=== PATIENT | male | born 1950 | race Caucasian/White ===

== ENCOUNTER 2016-04-03 01:54 | Emergency (ER) | payer OTHER ==
[2016-04-03 02:05] VITALS: TEMP 97.3
[2016-04-03] MEDS ORDERED: NS 1,000 ML IV ONE (02:33)
[2016-04-03] MEDS ORDERED: ONDANSETRON 4 MG/2 ML VIAL IVP ONE (02:33)
--- NOTE | 2016-04-03 02:49 | EDPHY ---
H & P Stated Complaint: abd pain, n/v/d, (fleet enemas tonight with subsequent BMs) Time Seen by Provider: 04/03/16 02:08 HPI/ROS: HPI The patient presents with lower abdominal sharp pain which has been constant over the last several hours. He had a cervical spinal fusion performed 4 days ago and has been recuperating at home. He is taking Percocet for pain. He thought his pain was related to constipation so we gave himself a Fleet's enema with good bowel movement afterwards. However, his pain continued so he came into the emergency room. This pain is accompanied by vomiting he has had several episodes of nonbloody nonbilious emesis.. REVIEW OF SYSTEMS Constitutional: No fever, no chills. Eyes: No discharge. ENT: No sore throat. Cardiovascular: No chest pain, no palpitations. Respiratory: No cough, no shortness of breath. Gastrointestinal: See HPI Genitourinary: No hematuria. Musculoskeletal: No back pain. Skin: No rashes. Neurological: No headache. PMHx: Cervical fusion Soc Hx: Lives at home PHYSICAL General Appearance: Alert, no distress Eyes: Pupils equal and round no pallor or injection ENT, Mouth: Mucous membranes moist Respiratory: There are no retractions, lungs are clear to auscultation Cardiovascular: Regular rate and rhythm Gastrointestinal: Abdomen is soft and non-tender, no masses, bowel sounds normal Neurological: A&O, moves all extremities Skin: Warm and dry, no rashes Musculoskeletal: Neck is supple non tender Extremities: symmetrical, full range of motion Psychiatric: Patient is oriented X 3, there is no agitation Source: Patient Exam Limitations: No limitations - Personal History Current Tetanus/Diphtheria Vaccine: Yes Tetanus Vaccine Date: <10 YRS - Medical/Surgical History Hx Asthma: No Hx Chronic Respiratory Disease: No Hx Diabetes: No Hx Cardiac Disease: No Hx Renal Disease: No Hx Cirrhosis: No Hx Alcoholism: No Hx HIV/AIDS: No Hx Splenectomy or Spleen Trauma: No Other PMH: PSHx:cervical fusion 03/30/2016 (second fusion), bilat hip replacement. PMHx: high cholesterol, arthritis - Social History Smoking Status: Never smoked Constitutional: Initial Vital Signs Temperature (C) 36.3 C 04/03/16 01:58 Heart Rate 98 04/03/16 01:58 Respiratory Rate 14 04/03/16 01:58 Blood Pressure 138/86 H 04/03/16 01:58 O2 Sat (%) 91 L 04/03/16 01:58 O2 Delivery Mode Room Air Allergies/Adverse Reactions: tramadol Allergy (Unknown, Verified 11/29/12 23:58) Vomiting Home Medications: Medication Instructions Recorded Simvastatin [Zocor 20 mg (RX)] 20 mg PO DAILY18 03/04/12 oxyCODONE/APAP 5/325 [Percocet 1 - 2 tab PO BID PRN 11/29/12 5/325 (RX)] Flomax 04/03/16 Keflex 04/03/16 Valium 04/03/16 Zofran 04/03/16 Medical Decision Making ED Course/Re-evaluation: The patient received IV fluids and had basic labs checked. His labs were unremarkable. After L of fluid he was feeling entirely better. His abdominal exam was benign with no further tenderness. It is possible his pain is related to constipation and have discussed this with him. We plan for him to continue plenty of fluids, Colace, MiraLax. He is to return to the emergency room if his abdominal pain returns. Differential Diagnosis: This is a relatively healthy 66-year-old man who is status post spinal fusion on Percocet who presents from home with abdominal pain which has persisted after administering an enema at home. His pain began prior to the enema and is associated with vomiting. Differential diagnosis includes constipation, less likely bowel perforation from enema use, diverticulitis, colitis, dehydration. - Data Points Laboratory Results: Laboratory Results 04/03/16 02:40 04/03/16 02:40 04/03/16 02:40 WBC 11.02 H 10^3/uL (3.80-9.50) RBC 4.59 10^6/uL (4.40-6.38) Hgb 15.3 g/dL (13.7-17.5) Hct 42.6 % (40.0-51.0) MCV 92.8 fL (81.5-99.8) MCH 33.3 pg (27.9-34.1) MCHC 35.9 g/dL (32.4-36.7) RDW 11.6 % (11.5-15.2) Plt Count 284 10^3/uL (150-400) MPV 9.6 fL (8.7-11.7) Neut % (Auto) 84.0 H % (39.3-74.2) Lymph % (Auto) 4.1 L % (15.0-45.0) Edgar % (Auto) 11.3 % (4.5-13.0) Eos % (Auto) 0.0 L % (0.6-7.6) Baso % (Auto) 0.2 L % (0.3-1.7) Nucleat RBC Rel Count 0.0 % (0.0-0.2) Absolute Neuts (auto) 9.26 H 10^3/uL (1.70-6.50) Absolute Lymphs (auto) 0.45 L 10^3/uL (1.00-3.00) Absolute Monos (auto) 1.25 H 10^3/uL (0.30-0.80) Absolute Eos (auto) 0.00 L 10^3/uL (0.03-0.40) Absolute Basos (auto) 0.02 10^3/uL (0.02-0.10) Absolute Nucleated RBC 0.00 10^3/uL (0-0.01) Immature Gran % 0.4 % (0.0-1.1) Immature Gran # 0.04 10^3/uL (0.00-0.10) Sodium 137 mEq/L (134-144) Potassium 3.8 mEq/L (3.5-5.2) Chloride 98 mEq/L (97-110) Carbon Dioxide 28 mEq/l (22-31) Anion Gap 11 mEq/L (8-16) BUN 18 mg/dL (7-23) Creatinine 0.7 mg/dL (0.7-1.3) Estimated GFR > 60 Glucose 143 H mg/dL (70-100) Calcium 9.9 mg/dL (8.5-10.4) Total Bilirubin 1.2 mg/dL (0.1-1.4) Conjugated Bilirubin 0.3 mg/dL (0.0-0.5) Unconjugated Bilirubin 0.9 mg/dL (0.0-1.1) AST 33 IU/L (17-59) ALT 48 IU/L (21-72) Alkaline Phosphatase 60 IU/L (38-126) Total Protein 6.2 L g/dL (6.3-8.2) Albumin 4.1 g/dL (3.5-5.0) Lipase 75.0 IU/L (23-300) Medications Given: Discontinued Medications Sodium Chloride (Ns) 1,000 mls @ 0 mls/hr IV ONCE ONE PRN Reason: Wide Open Stop: 04/03/16 02:34 Last Admin: 04/03/16 02:48 Dose: 1,000 mls Ondansetron HCl (Zofran) 4 mg IVP EDNOW ONE Stop: 04/03/16 02:34 Last Admin: 04/03/16 02:48 Dose: 4 mg Departure - Departure Disposition: Home, Routine, Self-Care Clinical Impression: Abdominal pain, Vomiting Condition: Good Instructions: Constipation (ED) Additional Instructions: Please make sure to drink plenty of fluids. You should also take them MiraLax and Colace to help with your bowel movements. Please take the lowest dose of oxycodone that you need for your pain. You should return to the emergency room if your pain is worse in any way. Referrals: Salvador Fisher MD [Primary Care Provider] - As per Instructions
[2016-04-03 02:58] LABS: ALANINE AMINOTRANSFERASE 48 IU/L (21-72); ALBUMIN 4.1 g/dL (3.5-5.0); ALKALINE PHOSPHATASE 60 IU/L (38-126); ANION GAP 11 mEq/L (8-16); ASPARTATE AMINOTRANSFERASE 33 IU/L (17-59); BILIRUBIN,TOTAL 1.2 mg/dL (0.1-1.4); BILIRUBIN-CONJUGATED 0.3 mg/dL (0.0-0.5); BILIRUBIN-UNCONJUGATED 0.9 mg/dL (0.0-1.1); CALCIUM 9.9 mg/dL (8.5-10.4); CARBON DIOXIDE 28 mEq/l (22-31); CHLORIDE 98 mEq/L (97-110); CREATININE 0.7 mg/dL (0.7-1.3); GLOMERULAR FILTRATION RATE > 60; GLUCOSE 143 mg/dL (70-100); POTASSIUM 3.8 mEq/L (3.5-5.2); SODIUM 137 mEq/L (134-144); TOTAL PROTEIN 6.2 g/dL (6.3-8.2)
[2016-04-03 03:01] LABS: % IMMATURE GRANULYOCYTES 0.4 % (0.0-1.1); ABSOLUTE IMMATURE GRANULOCYTES 0.04 10^3/uL (0.00-0.10); ADD DIFF? NO; ADD MORPH? NO; ADD SCAN? NO; ATYPICAL LYMPHOCYTE FLAG 0 (0-99); FRAGMENT RBC FLAG 0 (0-99); HEMATOCRIT 42.6 % (40.0-51.0); HEMOGLOBIN 15.3 g/dL (13.7-17.5); LEFT SHIFT FLG 0 (0-99); LIPEMIA HEMOLYSIS FLAG 90 (0-99); MEAN CELL HEMOGLOBIN 33.3 pg (27.9-34.1); MEAN CELL HEMOGLOBIN CONCENTR. 35.9 g/dL (32.4-36.7); MEAN CELL VOLUME 92.8 fL (81.5-99.8); MEAN PLATELET VOLUME 9.6 fL (8.7-11.7); PLATELET CLUMPS FLAG 10 (0-99); PLATELET COUNT 284 10^3/uL (150-400); RED BLOOD CELL COUNT 4.59 10^6/uL (4.40-6.38); RED CELL DISTRIBUTION WIDTH 11.6 % (11.5-15.2)
[2016-04-03 03:45] VITALS: BP 142/92; PULSE 87; RESP 16; O2SAT 93
== END 2016-04-03 03:47 | disposition home or self-care (01) ==
DX: R10.30 Lower abdominal pain, unspecified (principal); R11.10 Vomiting, unspecified
CPT/HCPCS: 96374; J2405

== ENCOUNTER 2016-04-27 05:55 | Inpatient (IN) | payer OTHER ==
[2016-04-27] MEDS ORDERED: ceFAZolin 2 GM/DEXTROSE 100 ML IV ONE (06:00)
[2016-04-27] MEDS ORDERED: fentaNYL 100 MCG/2 ML INJ IT ONE (06:00)
[2016-04-27] MEDS ORDERED: DEXAMETHASONE 10 MG/ML VIAL IVP ONE (06:00)
[2016-04-27] MEDS ORDERED: morphINE PF 1 MG/2 ML AMP IT ONE (06:00)
[2016-04-27] MEDS ORDERED: LIDOCAINE 1% 5 ML SDV ONE (06:45)
[2016-04-27] MEDS ORDERED: BACITRACIN 50,000 UNITS/10 ML SYR IRR ONE (06:45)
[2016-04-27] MEDS ORDERED: BUPIVACAINE/EPI 0.25% 30 ML SDV ONE (06:45)
[2016-04-27] MEDS ORDERED: BUPIVACAINE 0.25% 30 ML SDV ONE (06:45)
[2016-04-27] MEDS ORDERED: THROMBIN (RECOMBINANT) 5,000 UNIT VIAL TP ONE (06:45)
[2016-04-27] MEDS ORDERED: PROPOFOL/EMULSION 500 MG/50 ML BOTTLE IV ONE ×3 (07:02→11:25)
[2016-04-27] MEDS ORDERED: fentaNYL 100 MCG/2 ML INJ ONE ×2 (07:02→10:54)
[2016-04-27] MEDS ORDERED: CITRATE DEXTROSE SOLN 500 ML BAG ONE ×2 (07:03→10:29)
[2016-04-27] MEDS ORDERED: ROCURONIUM 50 MG/5 ML VIAL ONE (07:08)
[2016-04-27] MEDS ORDERED: MIDAZOLAM 2 MG/2 ML VIAL ONE (07:09)
[2016-04-27] MEDS ORDERED: LIDOCAINE 2% 100 MG/5 ML SYR IVP ONE (07:10)
[2016-04-27] MEDS ORDERED: PHENYLEPHRINE HCL 100 MCG/ML SYR ONE (07:16)
[2016-04-27] MEDS ORDERED: DEXAMETHASONE 4 MG/ML VIAL ONE (08:26)
[2016-04-27] MEDS ORDERED: ONDANSETRON 4 MG/2 ML VIAL ONE (08:27)
[2016-04-27] MEDS ORDERED: morphINE PF 5 MG/10 ML INJ ONE (10:54)
[2016-04-27] MEDS ORDERED: ceFAZolin 1 GM VIAL ONE ×2 (11:09)
[2016-04-27] MEDS ORDERED: ALBUMIN 5% 250 ML BOTTLE IV ONE (12:09)
[2016-04-27] MEDS ORDERED: SUGAMMADEX SODIUM 200 MG/2 ML VIAL IVP ONE (13:02)
[2016-04-27] MEDS ORDERED: DIAZEPAM 10 MG/2 ML SYR IVP PRN (13:04)
[2016-04-27] MEDS ORDERED: LACTULOSE 20 GM/30 ML UDCUP PO PRN (13:04)
[2016-04-27] MEDS ORDERED: MAGNESIUM HYDROXIDE 30 ML UDCUP PO PRN (13:04)
[2016-04-27] MEDS ORDERED: diphenhydrAMINE 25 MG CAP PO PRN (13:04)
[2016-04-27] MEDS ORDERED: NALOXONE HCL 0.4 MG/ML INJ IVP PRN (13:04)
--- NOTE | 2016-04-27 13:11 | SOAPPROG ---
SOAP Progress Note Assessment/Plan: Assessment: 66 yo M sp L2-5 TLIF Plan: stable hob flat for 3 days because of durotomy TU x 1 but do NOT put TU to suction please call with neuro changes 04/27/16 13:10 Subjective: + back pain, no leg pain Objective: awake, alert PERRL, EOMI, no facial droop 5/5 + light touch ICD10 Worksheet Patient Problems: Problems Problem Status Diagnosed Fusion of lumbar spine Acute - ICD10 Problem Qualifiers (1) Fusion of lumbar spine
--- NOTE | 2016-04-27 13:12 | POSTOPPROG ---
Post Op Note Date of Operation: 04/27/16 Surgeon: Jason Robles Claims Analyst: Edi Anesthesiologist: Thelma Anesthesia: GET(General Endotracheal) Pre-op Diagnosis: lumbar DJD Post-op Diagnosis: same Indication: low back pain Procedure: L2-5 TLIF Findings: DJD/stenosis Inf/Abcess present in the surg proc area at time of surgery?: No EBL: 50-100 Complications: durotomy at L5/S1 Drains: Ck Lanza
--- NOTE | 2016-04-27 15:53 | GOP ---
[f rep st] OPERATIVE REPORT DATE OF OPERATION: 04/27/2016 SURGEON: Jason Robles MD MANAGER ORDER: Felix Daley PA-C. ANESTHESIA: General endotracheal. PREOPERATIVE DIAGNOSIS: Severe multilevel lumbar degenerative joint disease with spondylosis and spi nal stenosis/lateral recess and foraminal impingement. Intractable low back pain. Failed conservati ve care. POSTOPERATIVE DIAGNOSIS: Severe multilevel lumbar degenerative joint disease with spondylosis and sp inal stenosis/lateral recess and foraminal impingement. Intractable low back pain. Failed conservat yeison care. PROCEDURE PERFORMED: Left-sided L2-3, L3-4, and L4-5 far lateral transfacet transpedicular decompres ira with L2 through S1 posterior segmental (pedicle screw) fixation and posterolateral fusion with l ocal autograft and bone morphogenic protein. L2-3, L3-4, and L4-5 posterior/transforaminal lumbar in terbody fusion with 2 structural PEEK interbody spacers, local autograft and bone morphogenic protein at each level. Identification and repair of CSF leak not requiring laminectomy on the right at L5-S 1. Use of intraoperative microscopy, fluoroscopy and computer volumetric stereotactic navigation wit h intraoperative neurophysiologic testing. Injection of intrathecal narcotic analgesics and subcutan eous and intramuscular local anesthesia for postop pain control. FINDINGS: ESTIMATED BLOOD LOSS: 300 cc. INDICATIONS: The patient is a 66-year-old man with severe multilevel lumbar spondylosis and spinal s tenosis with lateral recess and foraminal impingement. He has severe disk space collapse and loss of normal sagittal alignment (lordosis) with intractable low back pain. He has failed extensive conser vative care. He does have some arthritis at the L1-2 and L5-S1 levels, but I felt that the L2 throug h L5 levels were much worse, and I did not want to perform any bigger surgery than he needed, and foc used on L2 through 5 instead of L1-2 and L5-S1. DESCRIPTION OF PROCEDURE: After informed consent was obtained, the patient was taken to the operatin g room and placed in the prone position on the Ck table. The lumbosacral area was prepped and d raped in a sterile fashion. After needle localization of the correct levels, the subcutaneous and in tramuscular tissues were infiltrated with local anesthesia. A midline linear incision was then creat ed from approximately L2 through L5. This was carried down to the fascial layer, which was incised u sing monopolar electrocautery, and carried in a subperiosteal plane along the spinous processes and l aydee bilaterally. Intraoperative fluoroscopy was again utilized to verify the correct levels. Foll owing this, the dissection was carried out over the lamina and facet joints, and the transverse proce sses exposed. I did notice some clear fluid down at the bottom of the incision and, on further explo ration under high-power microscopy, it appeared to be coming from the L5-S1 level, which was where th e ligamentum flavum was carefully elevated and a small hole was identified that appeared to be relate d to the needle localization. This was repaired with a single 4-0 Nurolon suture without requiring a ny laminectomy. Following this, the microscope was re-focused on the L2-3, L3-4, and L4-5 levels, wh ere left-sided far lateral transfacet transpedicular decompressions were performed with complete unro ofing of the facet joints and neural foramina as well as the lateral recess and central canals at eac h level. Following this, the [employer] neuronavigational system was brought in, and using computer vol umetric stereotactic navigation, pedicle screws were placed at L2, L3, L4, and L5 bilaterally. Each individual screw was tested neurophysiologically with monopolar electrical stimulation and interpreta tion of the potentials by the surgeon. Serial rods were then placed. First at L4-5, then at L3-4, th en at L2-3 under distraction, during which time complete diskectomies were performed with preparation of the endplates and placement of 2 structural PEEK interbody spacers, local autograft and bone morp hogenic protein at each level for L2-3, L3-4, and L4-5 posterior/transforaminal lumbar interbody fusi ons. Longer rods were then contoured in place and secured from L2 through L5 with maximal lordosis i n order to prevent flat back syndrome. A slight amount of compression was placed across the screws a nd rods and the wound copiously irrigated with antibiotic irrigation, and meticulous hemostasis was a gain achieved. The remaining facet joints and lamina were then extensively decorticated, and the res idual local autograft, along with bone morphogenic protein, was placed out laterally for posterolater al fusion from L2 through L5. Following re-verification of good positioning of the screws, rods, and interbody spacers, 200 mcg of Duramorph, along with 50 mcg of fentanyl were injected intrathecally. The subcutaneous and intramuscular tissues were re-infiltrated with local anesthesia. A drain was p laced, and the wound was closed in a layered fashion using interrupted Vicryl sutures followed by nyl on on the skin. COMPLICATIONS: None. DISPOSITION: The patient was extubated and transferred to the recovery room in stable condition. /[id number]/MODL
[2016-04-27] MEDS: NS W/ 20 KCl/L 1,000 ML IV SCH (16:35)
[2016-04-27] MEDS: POLYETHYLENE GLYCOL 3350 17 GM PKT PO SCH ×2 (16:36→21:14)
[2016-04-27] MEDS: oxyCODONE IR 5 MG TAB PO PRN (17:35)
[2016-04-27] MEDS: HYDROCODONE/APAP 10/325 TAB PO PRN (18:32)
--- NOTE | 2016-04-27 19:19 | DX ---
Fluoroscopy greater than 1 hour Indication: TLIF. Findings: Three intraoperative films to show instrumentation from L3 to S1. Total fluoroscopic time p rovided was 33.2 seconds.
[2016-04-27] MEDS: DIAZEPAM 5 MG TAB PO PRN (21:14)
[2016-04-27] MEDS: SENNOSIDES/DOCUSATE SODIUM TAB PO SCH (21:14)
[2016-04-27] MEDS: morphINE SR 15 MG TAB PO SCH (21:14)
[2016-04-27] MEDS: FAMOTIDINE 20 MG/NACL 50 ML IV SCH (21:15)
[2016-04-27] MEDS: ONDANSETRON 4 MG/2 ML VIAL IVP PRN (23:59)
[2016-04-28] MEDS: PROMETHAZINE HCL 25 MG/ML INJ IVP PRN ×4 (00:43→20:41)
[2016-04-28] MEDS: HYDROCODONE/APAP 10/325 TAB PO PRN ×2 (03:17→09:52)
[2016-04-28] MEDS: NS W/ 20 KCl/L 1,000 ML IV SCH ×2 (03:41→16:28)
[2016-04-28] MEDS: ONDANSETRON DISINTEGRATING 4 MG TAB PO PRN ×2 (04:38→12:05)
[2016-04-28 05:23] LABS: % IMMATURE GRANULYOCYTES 0.4 % (0.0-1.1); ABSOLUTE IMMATURE GRANULOCYTES 0.04 10^3/uL (0.00-0.10); ADD DIFF? NO; ADD MORPH? NO; ADD SCAN? NO; ATYPICAL LYMPHOCYTE FLAG 0 (0-99); FRAGMENT RBC FLAG 0 (0-99); HEMATOCRIT 34.5 % (40.0-51.0); HEMOGLOBIN 12.1 g/dL (13.7-17.5); LEFT SHIFT FLG 0 (0-99); LIPEMIA HEMOLYSIS FLAG 90 (0-99); MEAN CELL HEMOGLOBIN CONCENTR. 35.1 g/dL (32.4-36.7); MEAN PLATELET VOLUME 9.2 fL (8.7-11.7); PLATELET CLUMPS FLAG 10 (0-99); PLATELET COUNT 220 10^3/uL (150-400); RED BLOOD CELL COUNT 3.67 10^6/uL (4.40-6.38); RED CELL DISTRIBUTION WIDTH 11.9 % (11.5-15.2)
[2016-04-28] MEDS: ACETAMINOPHEN 325 MG TAB PO PRN (05:24)
[2016-04-28] MEDS: METHOCARBAMOL 750 MG TAB PO PRN ×2 (05:24→13:16)
[2016-04-28 05:36] LABS: ANION GAP 8 mEq/L (8-16); CALCIUM 8.8 mg/dL (8.5-10.4); CARBON DIOXIDE 24 mEq/l (22-31); CHLORIDE 104 mEq/L (97-110); CREATININE 0.6 mg/dL (0.7-1.3); GLOMERULAR FILTRATION RATE > 60; GLUCOSE 125 mg/dL (70-100); POTASSIUM 4.1 mEq/L (3.5-5.2); SODIUM 136 mEq/L (134-144)
[2016-04-28] MEDS: ATORVASTATIN CALCIUM 10 MG TAB PO SCH (07:56)
[2016-04-28] MEDS: SENNOSIDES/DOCUSATE SODIUM TAB PO SCH ×2 (07:56→20:49)
[2016-04-28] MEDS: morphINE SR 15 MG TAB PO SCH ×2 (07:57→20:47)
[2016-04-28] MEDS: ENOXAPARIN 40 MG/0.4 ML SYR SC SCH (07:57)
[2016-04-28] MEDS: POLYETHYLENE GLYCOL 3350 17 GM PKT PO SCH ×3 (07:57→20:49)
[2016-04-28] MEDS: FAMOTIDINE 20 MG/NACL 50 ML IV SCH (07:57)
[2016-04-28] MEDS: TAMSULOSIN HCL 0.4 MG CAP PO SCH (07:57)
[2016-04-28] MEDS: DIAZEPAM 5 MG TAB PO PRN (08:13)
[2016-04-28] MEDS ORDERED: SCOPOLAMINE HYDROBROMIDE 1.5 MG PATCH TD ONE (08:30)
--- NOTE | 2016-04-28 09:03 | NEUSURGPN ---
Assessment/Plan: Assessment: 66 yo M sp L2-5 TLIF POD #1 Plan: stable and doing well, complaining of nausea this morning, increased sensation in legs optimize pain management Stay on top of bowel protocol to avoid patient straining hob flat for 3 days because of durotomy Scop patch added due to nausea postop x-rays when able to ambulate TU x 1 but do NOT put TU to suction- will pull later today please call with neuro changes Subjective: Patient complaining of nausea this morning. Has increased sensation in legs. Back pain tolerable. Objective: NAD, VSS BLE 5/5= Sensation intact to lt touch TU - to no suction- minimal amount of blood in bulb Catheter Insertion Date: 04/27/16 - Physician Discussed Patient with : Margaret Patient Seen by : Margaret Neurosurgery Physical Exam - Vitals, I&O, Labs I and O 04/27/16 04/28/16 04/29/16 05:59 05:59 05:59 Intake Total 5235 Output Total 1165 Balance 4070 Weight 68.039 kg Intake: Oral (ml) 2250 IV Intake (ml) 1750 IV Infused (ml) 965 ceFAZolin 1 GM/DEXTROSE 55 50 ml @ 200 mls/hr IV Q8H ALBERTO Rx#:[id number] Famotidine 20 mg/NaCl 50 50 ml @ 200 mls/hr IV Q12HRS ALBERTO Rx#:[id number] NS W/ 20 KCl/L 1,000 ml @ 860 75 mls/hr IV CONT ALBERTO Rx #:[id number] Autologous Blood (ml) 270 Output: Urine (ml) 700 Catheter 700 Estimated Blood Loss (ml) 450 Wound Drainage (ml) 15 Posterior Back Ck 15 Lanza Other: Intake Quantity Yes Sufficient Vital Signs Temp Pulse Resp BP Pulse Ox 37.3 C 54 L 16 118/70 2 L 04/28/16 07:31 04/28/16 07:31 04/28/16 07:31 04/28/16 07:31 04/28/16 07:31 Laboratory Results 04/28/16 05:12 04/28/16 05:12 ICD10 Worksheet Patient Problems: Problems Problem Status Diagnosed Fusion of lumbar spine Acute
[2016-04-28] MEDS: HYDROmorphONE/DILAUDID 1 MG/ML SYR IVP PRN (10:56)
[2016-04-28] MEDS: HYDROmorphONE/DILAUDID 6 MG/30 ML PCA IV PRN (11:39)
[2016-04-28] MEDS: FAMOTIDINE 20 MG TAB PO SCH (20:47)
[2016-04-28] MEDS: ONDANSETRON 4 MG/2 ML VIAL IVP PRN (23:19)
[2016-04-29] MEDS: DIAZEPAM 5 MG TAB PO PRN ×4 (00:42→20:46)
[2016-04-29] MEDS: PROMETHAZINE HCL 25 MG/ML INJ IVP PRN ×2 (02:26→08:53)
[2016-04-29] MEDS: NS W/ 20 KCl/L 1,000 ML IV SCH (02:26)
[2016-04-29] MEDS: ONDANSETRON 4 MG/2 ML VIAL IVP PRN (05:09)
[2016-04-29] MEDS: HYDROmorphONE/DILAUDID 6 MG/30 ML PCA IV PRN (06:13)
--- NOTE | 2016-04-29 07:47 | SOAPPROG ---
SOAP Progress Note Assessment/Plan: Assessment: 66 yo M POD #2 L2-5 TLIF Plan: stable hob flat for 3 days because of durotomy, likely advance activity tomorrow TU removed 04/28 scd/eda/lovenox for dvt prophylaxis will change MScontin to oxycontin for nausea please call with neuro changes patient seen by Dr Jordan 04/27/16 13:10 04/29/16 07:45 Subjective: continued back pain with some leg pain. some nausea but no emesis. Objective: Vital Signs Temp Pulse Resp BP Pulse Ox 36.9 C 80 16 151/96 H 97 04/29/16 04:00 04/29/16 06:00 04/29/16 06:00 04/29/16 04:00 04/29/16 06:00 Laboratory Results 04/28/16 05:12 04/28/16 05:12 04/28/16 04/29/16 04/30/16 05:59 05:59 05:59 Intake Total 5235 2118.8 Output Total 1165 1750 Balance 4070 368.8 AAOX4, +FC PERRL, EOMI, no facial droop 5/5 + light touch C/D/I ICD10 Worksheet Patient Problems: Problems Problem Status Diagnosed Fusion of lumbar spine Acute - ICD10 Problem Qualifiers (1) Fusion of lumbar spine
[2016-04-29] MEDS: BISACODYL 10 MG SUPP PR PRN ×2 (08:11→16:27)
[2016-04-29] MEDS: FAMOTIDINE 20 MG TAB PO SCH ×2 (08:11→20:46)
[2016-04-29] MEDS: TAMSULOSIN HCL 0.4 MG CAP PO SCH (08:11)
[2016-04-29] MEDS: SENNOSIDES/DOCUSATE SODIUM TAB PO SCH ×2 (08:11→20:47)
[2016-04-29] MEDS: ATORVASTATIN CALCIUM 10 MG TAB PO SCH (08:11)
[2016-04-29] MEDS: ENOXAPARIN 40 MG/0.4 ML SYR SC SCH (08:11)
[2016-04-29] MEDS: POLYETHYLENE GLYCOL 3350 17 GM PKT PO SCH ×3 (08:56→20:47)
[2016-04-29] MEDS ORDERED: oxyCODONE CR 30 MG TAB PO SCH (09:00)
--- NOTE | 2016-04-29 11:08 | GPROG ---
[f rep st] PROGRESS NOTE NEUROSURGICAL PROGRESS NOTE DATE OF SERVICE: 04/28/2016 SUBJECTIVE: The patient is being seen and examined on postoperative day #1. He awakens to voice and moves all of his extremities well. OBJECTIVE: VITAL SIGNS: He is afebrile with stable vital signs. SKIN: His dressing is clean and d ry. He has some serosanguineous fluid in his TU bulb, which we will pull today. PLAN: He will remain flat for another 48 hours, and we will slowly sit him up thereafter. /[id number]/MODL
[2016-04-29] MEDS: hydrALAZINE 20 MG/ML VIAL IVP PRN (12:56)
[2016-04-29] MEDS: oxyCODONE CR 15 MG TAB PO SCH (20:47)
[2016-04-29] MEDS: oxyCODONE IR 5 MG TAB PO PRN (22:15)
[2016-04-30] MEDS: oxyCODONE IR 5 MG TAB PO PRN ×6 (03:22→20:53)
[2016-04-30] MEDS: DIAZEPAM 5 MG TAB PO PRN ×4 (03:22→21:51)
[2016-04-30] MEDS: NS W/ 20 KCl/L 1,000 ML IV SCH ×2 (03:22→18:17)
[2016-04-30] MEDS: ACETAMINOPHEN 325 MG TAB PO PRN (03:33)
[2016-04-30] MEDS: HYDROmorphONE/DILAUDID 6 MG/30 ML PCA IV PRN (03:39)
--- NOTE | 2016-04-30 07:13 | SOAPPROG ---
SOAP Progress Note Assessment/Plan: Assessment: 66 yo M POD #3 L2-5 TLIF Plan: stable hob flat for 3 days because of durotomy, advance activity today at 7 am TU removed 2/ scd/eda/lovenox for dvt prophylaxis change to oxycontin improved nausea please call with neuro changes patient seen by Dr Jordan 04/27/16 13:10 04/29/16 07:45 04/30/16 07:11 Subjective: pt sleeping well, no N/V. continued back pain. Objective: Vital Signs Temp Pulse Resp BP Pulse Ox 37.2 C 73 16 106/70 97 04/30/16 03:40 04/30/16 05:49 04/30/16 05:49 04/30/16 05:49 04/30/16 05:49 Laboratory Results 04/28/16 05:12 04/28/16 05:12 04/29/16 04/30/16 05/01/16 05:59 05:59 05:59 Intake Total 2118.8 1000 Output Total 1750 950 Balance 368.8 50 AAOx4, +FC PERRL, EOMI, no facial droop 5/5 + light touch C/D/I ICD10 Worksheet Patient Problems: Problems Problem Status Diagnosed Fusion of lumbar spine Acute - ICD10 Problem Qualifiers (1) Fusion of lumbar spine
[2016-04-30] MEDS: ATORVASTATIN CALCIUM 10 MG TAB PO SCH (08:46)
[2016-04-30] MEDS: oxyCODONE CR 15 MG TAB PO SCH ×2 (08:46→20:53)
[2016-04-30] MEDS: FAMOTIDINE 20 MG TAB PO SCH ×2 (08:46→20:53)
[2016-04-30] MEDS: TAMSULOSIN HCL 0.4 MG CAP PO SCH (08:46)
[2016-04-30] MEDS: SENNOSIDES/DOCUSATE SODIUM TAB PO SCH ×2 (08:46→20:53)
[2016-04-30] MEDS: POLYETHYLENE GLYCOL 3350 17 GM PKT PO SCH ×3 (08:47→22:50)
[2016-04-30] MEDS: ENOXAPARIN 40 MG/0.4 ML SYR SC SCH (08:49)
[2016-04-30] MEDS: HYDROmorphONE/DILAUDID 1 MG/ML SYR IVP PRN ×5 (14:32→23:18)
[2016-04-30] MEDS: METHOCARBAMOL 750 MG TAB PO PRN ×2 (16:11→23:23)
[2016-04-30] MEDS: ONDANSETRON DISINTEGRATING 4 MG TAB PO PRN (23:23)
[2016-04-30] MEDS: HYDROCODONE/APAP 10/325 TAB PO PRN (23:23)
[2016-05-01] MEDS: hydrALAZINE 20 MG/ML VIAL IVP PRN (02:11)
[2016-05-01] MEDS: DIAZEPAM 5 MG TAB PO PRN ×2 (02:12→08:55)
[2016-05-01] MEDS: oxyCODONE IR 5 MG TAB PO PRN ×4 (02:49→21:11)
[2016-05-01] MEDS: oxyCODONE CR 15 MG TAB PO SCH ×2 (08:21→21:03)
[2016-05-01] MEDS: TAMSULOSIN HCL 0.4 MG CAP PO SCH (08:21)
[2016-05-01] MEDS: FAMOTIDINE 20 MG TAB PO SCH ×2 (08:22→21:02)
[2016-05-01] MEDS: SENNOSIDES/DOCUSATE SODIUM TAB PO SCH ×2 (08:22→21:05)
[2016-05-01] MEDS: ATORVASTATIN CALCIUM 10 MG TAB PO SCH (08:22)
[2016-05-01] MEDS: HYDROmorphONE/DILAUDID 1 MG/ML SYR IVP PRN ×2 (08:31→09:36)
[2016-05-01 09:19] LABS: ADD DIFF? YES; ADD MORPH? NO; ADD SCAN? NO; ATYPICAL LYMPHOCYTE FLAG 0 (0-99); FRAGMENT RBC FLAG 0 (0-99); HEMATOCRIT 30.1 % (40.0-51.0); HEMOGLOBIN 10.7 g/dL (13.7-17.5); LEFT SHIFT FLG 0 (0-99); LIPEMIA HEMOLYSIS FLAG 90 (0-99); MEAN CELL HEMOGLOBIN 32.5 pg (27.9-34.1); MEAN CELL HEMOGLOBIN CONCENTR. 35.5 g/dL (32.4-36.7); MEAN CELL VOLUME 91.5 fL (81.5-99.8); MEAN PLATELET VOLUME 9.3 fL (8.7-11.7); PLATELET CLUMPS FLAG 0 (0-99); PLATELET COUNT 248 10^3/uL (150-400); RED BLOOD CELL COUNT 3.29 10^6/uL (4.40-6.38); RED CELL DISTRIBUTION WIDTH 11.5 % (11.5-15.2)
[2016-05-01] MEDS ORDERED: fentaNYL 100 MCG/2 ML INJ ONE (09:22)
[2016-05-01 09:34] LABS: APTT 25.9 SEC (23.0-38.0); INR 1.06 (0.83-1.16); PROTIME(PATIENT) 13.7 SEC (12.0-15.0)
[2016-05-01 09:35] LABS: ANION GAP 6 mEq/L (8-16); CALCIUM 8.5 mg/dL (8.5-10.4); CARBON DIOXIDE 27 mEq/l (22-31); CHLORIDE 97 mEq/L (97-110); CREATININE 0.5 mg/dL (0.7-1.3); GLOMERULAR FILTRATION RATE > 60; GLUCOSE 108 mg/dL (70-100); POTASSIUM 3.4 mEq/L (3.5-5.2); SODIUM 130 mEq/L (134-144)
--- NOTE | 2016-05-01 09:36 | NEUSURGPN ---
Date of Surgery: 04/27/16 Post Op Day: 4 Assessment/Plan: 66 male s/p L2-5 TLIF ongoing low back pain/spasms and LE weakness in quads Pt with intermittent confusion Plan: MRI lumbar spine today - STAT to evaluate for compressive fluid collection activity as tolerated Discussed with Dr. Jordan Subjective: lying flat in bed with intermittent severe pain/back spasms Objective: NEURO: LOERA, sens +LT 4/5 bilat quad strength 5/5 PF/DF/ Incision: CDI no evidence of CSF or bloody drainage Urinary Catheter in Place: Yes Urinary Catheter Indication: Surgical Requirement Catheter Insertion Date: 04/27/16 - Physician Discussed Patient with : Margaret Neurosurgery Physical Exam - Vitals, I&O, Labs I and O 04/30/16 05/01/16 05/02/16 05:59 05:59 05:59 Intake Total 1000 2750 Output Total 950 2425 Balance 50 325 Intake: Oral (ml) 100 950 IV Infused (ml) 900 1800 NS W/ 20 KCl/L 1,000 ml @ 900 1800 75 mls/hr IV CONT ALBERTO Rx #:[id number] Output: Urine (ml) 950 2425 Catheter 950 2425 Other: Intake Quantity Yes Sufficient Number of Voids Catheter 1 Number of Stools Catheter 1 Vital Signs Temp Pulse Resp BP Pulse Ox 36.6 C 86 16 160/95 H 97 05/01/16 07:32 05/01/16 07:32 05/01/16 07:32 05/01/16 07:32 05/01/16 07:32 Laboratory Results 05/01/16 09:03 ICD10 Worksheet Patient Problems: Problems Problem Status Diagnosed Fusion of lumbar spine Acute
[2016-05-01] MEDS: ENOXAPARIN 40 MG/0.4 ML SYR SC SCH (09:37)
[2016-05-01] MEDS: POLYETHYLENE GLYCOL 3350 17 GM PKT PO SCH ×3 (09:37→21:04)
[2016-05-01] MEDS ORDERED: MIDAZOLAM 2 MG/2 ML VIAL ONE (10:17)
[2016-05-01 10:39] LABS: PLATELET ESTIMATE ADEQUATE (ADEQ)
[2016-05-01] MEDS ORDERED: LIDOCAINE 1% 30 ML SDV ONE (10:48)
--- NOTE | 2016-05-01 11:02 | MR ---
MRI of the Lumbar Spine (Without Contrast) Clinical Indications: Status post lumbar spine instrumentation and fusion, complicated by dural perfo ration. Severe low back pain. Technique: Sagittal and axial T1 and T2 MR sequences of the lumbar spine without contrast. Findings: Features of instrumentation and fusion are identified from L2 through L5 with bilateral ped icle screws at all four levels connected by posterior pallavi fixation. Intervertebral graft material is present at L2-L3, L3-L4, and L4-L5 in appropriate positions. There is a longitudinal posterior left-sided epidural fluid collection within the operative bed. The fluid collection measures 8 cm in craniocaudal extent and 2.5 cm in AP extent, and is more focally pr ominent at the intervertebral disk levels. There is secondary marked effacement of the thecal sac and the cauda equina at the L2-L3, L3-L4, and L4-L5 levels. Pedicle screws appear appropriately positioned throughout the instrumentation construct. There is siobhan e tethering of the cauda equina at the L2 level with slight redundancy of nerve roots above this leve l. Impression: 1. Status post instrumentation and fusion of the lumbar spine from L2 through L5. A postsurgical post erior left-sided epidural fluid collection is present with secondary mass effect on the thecal sac an d cauda equina from the L2-L3 level through the L4-L5 level.. 2. Examination reviewed with Dr. Rosalio Robles and Dr. Kane Santos prior to percutaneous interventio n.
[2016-05-01] MEDS: SODIUM CHLORIDE 1,000 MG TAB PO SCH ×2 (13:06→17:57)
[2016-05-01] MEDS: NS W/ 20 KCl/L 1,000 ML IV SCH (13:26)
[2016-05-01] MEDS: METHOCARBAMOL 750 MG TAB PO PRN (13:33)
[2016-05-01] MEDS ORDERED: PROTOCOL POTASSIUM 1 DOSE MISC PRN (15:22)
[2016-05-01 18:54] LABS: POTASSIUM 3.4 mEq/L (3.5-5.2)
--- NOTE | 2016-05-01 19:03 | IR ---
Lumbar Drain Placement Indication: Post fusion with probable hematoma/CSF combination fluid collection extending superior to inferior in the operative site. Most of this fluid collection is on the left side at the laminectomy defects. Patient's most recent MRI was reviewed. Informed consent: Obtained from the patient. Risks and benefits were discussed. Cross Cutting Measure: Patient's current list of medications including all known prescriptions, over -the-counters, herbals, and vitamin/mineral/dietary supplements are reviewed. Medications' name, dos age, frequency, and route of administration are confirmed. The patient is a non-smoker. Prophylactic Antibiotic: Cefazolin was not ordered and administered for antimicrobial prophylaxis be cause it was not medically necessary. VTE Prophylaxis: There is not an order for VTE prophylaxis to be given within 24 hours of the proced ure end time. VTE prophylaxis was not given because it was not medically necessary. Technique: Patient is placed in prone position. A "timeout" procedure was performed to identify the correct patient and the correct procedure. 1% Xylocaine was used for local anesthetic. All elements of maximal sterile barrier technique including cap, mask, sterile gown, sterile gloves, large steril e sheet, hand hygiene, and 2% chlorhexidine for cutaneous antisepsis, followed. Under biplane fluoroscopy, using trocar technique, a 6-Grenadian Skater drain was advanced on the left s rufus to the level of L3-L4. It is advanced until on the lateral film, the catheter pigtails overlappin g the most ventral aspect of the spinous process. A total of 70 mL of dark blood was aspirated, and sent for requested labs. The drain is attached to g ravity drainage bag, no suction, and secured externally in place, including sutures. Patient tolerated the procedure well. Medication: Patient was already heavily medicated prior to this procedure. Fluoroscopy: 3.5 minutes, 4 images. Impression: 1. 6-Grenadian Skater drain advanced into left paracentral L3-L4, just posterior to the spinal canal. 2. 70 mL of dark blood drained out immediately, sent for requested labs.
[2016-05-01] MEDS ORDERED: POTASSIUM CL 10 MEQ TAB PO ONE (19:43)
[2016-05-02] MEDS: NS W/ 20 KCl/L 1,000 ML IV SCH ×2 (00:13→12:51)
[2016-05-02] MEDS: DIAZEPAM 5 MG TAB PO PRN ×2 (01:04→21:16)
[2016-05-02] MEDS: oxyCODONE IR 5 MG TAB PO PRN ×4 (01:04→17:34)
[2016-05-02 05:21] LABS: ANION GAP 5 mEq/L (8-16); CALCIUM 8.5 mg/dL (8.5-10.4); CARBON DIOXIDE 26 mEq/l (22-31); CHLORIDE 100 mEq/L (97-110); CREATININE 0.5 mg/dL (0.7-1.3); GLOMERULAR FILTRATION RATE > 60; GLUCOSE 96 mg/dL (70-100); POTASSIUM 3.7 mEq/L (3.5-5.2); SODIUM 131 mEq/L (134-144)
[2016-05-02] MEDS: SENNOSIDES/DOCUSATE SODIUM TAB PO SCH ×2 (08:12→21:08)
[2016-05-02] MEDS: ACETAMINOPHEN 325 MG TAB PO PRN ×3 (08:13→17:34)
[2016-05-02] MEDS: ATORVASTATIN CALCIUM 10 MG TAB PO SCH (08:13)
[2016-05-02] MEDS: FAMOTIDINE 20 MG TAB PO SCH ×2 (08:13→21:06)
[2016-05-02] MEDS: SODIUM CHLORIDE 1,000 MG TAB PO SCH ×3 (08:13→18:39)
[2016-05-02] MEDS: TAMSULOSIN HCL 0.4 MG CAP PO SCH (08:13)
[2016-05-02] MEDS: oxyCODONE CR 15 MG TAB PO SCH ×2 (08:14→21:07)
[2016-05-02] MEDS: ENOXAPARIN 40 MG/0.4 ML SYR SC SCH (08:14)
--- NOTE | 2016-05-02 10:48 | NEUSURGPN ---
Date of Surgery: 04/27/16 Post Op Day: 5 Assessment/Plan: 66 male s/p L2-5 TLIF IR drain placement on 05/01 after lumbar MRI showed compressive fluid collection pain now much better no confusion Plan: CPM with PT/OT Continue TU drain Xrays when he can tolerate them Subjective: lying in bed, pain well controlled in good spririts, not confused denies weakness or tingling Objective: TU: 110 LOERA, Sens +LT follows commands speech clear Urinary Catheter in Place: No Catheter Insertion Date: 04/27/16 Neurosurgery Physical Exam - Vitals, I&O, Labs I and O 05/01/16 05/02/16 05/03/16 05:59 05:59 05:59 Intake Total 2750 1850 Output Total 2425 3225 900 Balance 325 -1375 -900 Intake: Oral (ml) 950 950 IV Infused (ml) 1800 900 NS W/ 20 KCl/L 1,000 ml @ 1800 900 75 mls/hr IV CONT ALBERTO Rx #:[id number] Output: Urine (ml) 2425 3000 900 Catheter 2425 3000 900 Wound Drainage (ml) 115 Back Javier 115 Wound Drainage (ml) 110 Posterior Back Ck 110 Lanza Other: Intake Quantity Yes Sufficient Number of Voids Catheter 1 1 Number of Stools Catheter 1 Bedside Commode 1 1 Vital Signs Temp Pulse Resp BP Pulse Ox 36.3 C 81 17 157/93 H 93 05/02/16 07:18 05/02/16 07:18 05/02/16 07:18 05/02/16 07:18 05/02/16 07:18 Laboratory Results 05/01/16 09:03 05/02/16 04:50 ICD10 Worksheet Patient Problems: Problems Problem Status Diagnosed Fusion of lumbar spine Acute
[2016-05-02] MEDS ORDERED: POTASSIUM CL 10 MEQ TAB PO ONE (14:52)
[2016-05-02] MEDS: POLYETHYLENE GLYCOL 3350 17 GM PKT PO SCH ×3 (14:55→21:08)
[2016-05-02] MEDS: METHOCARBAMOL 750 MG TAB PO PRN (16:37)
[2016-05-02] MEDS: ONDANSETRON DISINTEGRATING 4 MG TAB PO PRN (17:34)
[2016-05-02 19:09] LABS: POTASSIUM 4.2 mEq/L (3.5-5.2)
[2016-05-03] MEDS: oxyCODONE IR 5 MG TAB PO PRN ×6 (01:19→20:35)
[2016-05-03] MEDS: DIAZEPAM 5 MG TAB PO PRN ×4 (02:55→22:05)
[2016-05-03 05:19] LABS: POTASSIUM 3.5 mEq/L (3.5-5.2)
[2016-05-03] MEDS: POLYETHYLENE GLYCOL 3350 17 GM PKT PO SCH ×3 (06:00→20:11)
[2016-05-03] MEDS: METHOCARBAMOL 750 MG TAB PO PRN (06:00)
[2016-05-03] MEDS ORDERED: POTASSIUM CL 10 MEQ TAB PO ONE ×3 (07:38→19:42)
[2016-05-03] MEDS: ENOXAPARIN 40 MG/0.4 ML SYR SC SCH (08:00)
[2016-05-03] MEDS: ACETAMINOPHEN 325 MG TAB PO PRN ×2 (08:29→13:47)
[2016-05-03] MEDS: FAMOTIDINE 20 MG TAB PO SCH ×2 (08:30→20:00)
[2016-05-03] MEDS: oxyCODONE CR 15 MG TAB PO SCH (08:30)
[2016-05-03] MEDS: SENNOSIDES/DOCUSATE SODIUM TAB PO SCH ×2 (08:31→20:00)
[2016-05-03] MEDS: SODIUM CHLORIDE 1,000 MG TAB PO SCH ×3 (08:31→18:07)
[2016-05-03] MEDS: ATORVASTATIN CALCIUM 10 MG TAB PO SCH (08:31)
[2016-05-03] MEDS: TAMSULOSIN HCL 0.4 MG CAP PO SCH (08:31)
--- NOTE | 2016-05-03 09:19 | DX ---
Lumbar spine,2 views 05/03/2016 History: Lumbar spine surgery. Comparison examination: MRI lumbar spine May 01, 2016. Findings: Surgical features of instrumentation and fusion of the lumbar spine from L2 through L5 are identified. There are bilateral pedicle screws present at all 4 levels in good position, connected by posterior pallavi fixation. Intervertebral graft material at all 3 interspaces appears appropriately pos ition. Intervertebral disk height loss is present at L1-L2 and L5-S1 compatible degenerative disk dis ease. A percutaneous drainage catheter extends posteriorly into the left paracentral operative bed. Impression: Status post instrumentation and fusion of the lumbar spine from L2 through L5. Percutaneous drainage catheter posteriorly. L1-L2 and L5-S1 degenerative disk disease.
--- NOTE | 2016-05-03 12:35 | NEUSURGPN ---
Date of Surgery: 04/27/16 Post Op Day: 6 Assessment/Plan: 66 male s/p L2-5 TLIF IR drain placement on 05/01 after lumbar MRI showed compressive fluid collection pain now much better mild confusion felt to be related to Oxycontin - will DC it Robaxin does not help, valium does. WIll DC RObaxin Plan: CPM with PT/OT Continue TU drain Xrays when he can tolerate them Subjective: asleep, wakes easily, pain well controlled. some confusion overnight felt to be related to Oxycontin No new numbness, tingling or weakness Objective: TU: 150ML LOERA, Sens +LT Urinary Catheter in Place: Yes Urinary Catheter Indication: Surgical Requirement Catheter Insertion Date: 05/01/16 (will DC now) - TU Drain Subfascial Wound Drainage (ml): 150 - Physician Discussed Patient with : Other Neurosurgery Physical Exam - Vitals, I&O, Labs I and O 05/02/16 05/03/16 05/04/16 05:59 05:59 05:59 Intake Total 1850 550 Output Total 3225 4250 Balance -1375 -3700 Intake: Oral (ml) 950 550 IV Infused (ml) 900 NS W/ 20 KCl/L 1,000 ml @ 900 75 mls/hr IV CONT ALBERTO Rx #:[id number] Output: Urine (ml) 3000 4100 Catheter 3000 4100 Wound Drainage (ml) 115 150 Back Javier 115 150 Wound Drainage (ml) 110 Posterior Back Ck 110 Lanza Other: Number of Voids Catheter 1 1 Number of Stools Bedside Commode 1 1 Vital Signs Temp Pulse Resp BP Pulse Ox 36.9 C 84 14 146/84 H 96 05/02/16 23:44 05/03/16 08:00 05/03/16 08:00 05/03/16 08:00 05/03/16 08:00 Laboratory Results 05/01/16 09:03 05/03/16 04:37 ICD10 Worksheet Patient Problems: Problems Problem Status Diagnosed Fusion of lumbar spine Acute
[2016-05-03 19:37] LABS: POTASSIUM 3.9 mEq/L (3.5-5.2)
[2016-05-04] MEDS: oxyCODONE IR 5 MG TAB PO PRN ×6 (00:40→21:35)
[2016-05-04] MEDS: DIAZEPAM 5 MG TAB PO PRN ×3 (02:32→21:35)
[2016-05-04] MEDS: ACETAMINOPHEN 325 MG TAB PO PRN (03:14)
[2016-05-04 05:18] LABS: POTASSIUM 4.1 mEq/L (3.5-5.2)
[2016-05-04] MEDS: HYDROCODONE/APAP 10/325 TAB PO PRN ×3 (08:03→21:37)
[2016-05-04] MEDS: SODIUM CHLORIDE 1,000 MG TAB PO SCH ×3 (08:04→18:01)
[2016-05-04] MEDS: ATORVASTATIN CALCIUM 10 MG TAB PO SCH (08:05)
[2016-05-04] MEDS: FAMOTIDINE 20 MG TAB PO SCH ×2 (08:05→21:35)
[2016-05-04] MEDS: POLYETHYLENE GLYCOL 3350 17 GM PKT PO SCH ×3 (08:05→21:35)
[2016-05-04] MEDS: SENNOSIDES/DOCUSATE SODIUM TAB PO SCH ×2 (08:05→21:35)
[2016-05-04] MEDS: TAMSULOSIN HCL 0.4 MG CAP PO SCH (08:05)
[2016-05-04] MEDS: ENOXAPARIN 40 MG/0.4 ML SYR SC SCH (09:26)
--- NOTE | 2016-05-04 10:32 | SOAPPROG ---
SOAP Progress Note Assessment/Plan: Assessment: 66 yo M POD #7 L2-5 TLIF Plan: stable, headache when up this am, will have patient lay flat today drain in placed, will keep drain clamped scd/eda/lovenox for dvt prophylaxis change to oxycontin improved nausea please call with neuro changes patient seen by Dr Jordan 04/27/16 13:10 04/29/16 07:45 04/30/16 07:11 05/04/16 10:30 Subjective: back pain improving, headache after being up for an hour this am. no leg pain. Objective: Vital Signs Temp Pulse Resp BP Pulse Ox 36.6 C 67 16 118/85 H 92 05/04/16 07:25 05/04/16 07:25 05/04/16 07:25 05/04/16 07:25 05/04/16 07:25 Laboratory Results 05/01/16 09:03 05/04/16 04:39 05/03/16 05/04/16 05/05/16 05:59 05:59 05:59 Intake Total 550 2900 Output Total 4250 4200 Balance -3700 -1300 PT 13.7 SEC (12.0-15.0) 05/01/16 09:03 INR 1.06 (0.83-1.16) 05/01/16 09:03 AAOX4, +FC PERRL, EOMI, no facial droop 5/5 + light touch C/D/I ICD10 Worksheet Patient Problems: Problems Problem Status Diagnosed Fusion of lumbar spine Acute - ICD10 Problem Qualifiers (1) Fusion of lumbar spine
[2016-05-04] MEDS ORDERED: PHARMACY PAIN CONSULT 1 EA MISC SCH (14:30)
[2016-05-04 18:04] LABS: POTASSIUM 4.5 mEq/L (3.5-5.2)
[2016-05-05] MEDS: oxyCODONE IR 5 MG TAB PO PRN ×4 (01:32→20:53)
[2016-05-05] MEDS: DIAZEPAM 5 MG TAB PO PRN ×5 (01:32→20:53)
[2016-05-05 06:46] LABS: POTASSIUM 4.5 mEq/L (3.5-5.2)
--- NOTE | 2016-05-05 07:49 | SOAPPROG ---
SOAP Progress Note Assessment/Plan: Assessment: 66 yo M POD #8 L2-5 TLIF Plan: stable, no headaches this am. Will have IR do right L5/S1 blood patch drain in place, will keep drain clamped scd/eda/lovenox for dvt prophylaxis please call with neuro changes patient seen by Dr Jordan 04/27/16 13:10 04/29/16 07:45 04/30/16 07:11 05/04/16 10:30 05/05/16 07:45 Subjective: back pain improving, no leg pain. No headaches. No N/V. Objective: Vital Signs Temp Pulse Resp BP Pulse Ox 37.1 C 73 16 142/94 H 97 05/04/16 23:52 05/04/16 23:52 05/04/16 23:52 05/04/16 23:52 05/04/16 23:52 Laboratory Results 05/01/16 09:03 05/05/16 04:57 05/04/16 05/05/16 05/06/16 05:59 05:59 05:59 Intake Total 2900 1900 Output Total 4200 1325 Balance -1300 575 PT 13.7 SEC (12.0-15.0) 05/01/16 09:03 INR 1.06 (0.83-1.16) 05/01/16 09:03 AAOX4, +FC PERRL, EOMI, no facial droop 5/5 + light touch C/D/I ICD10 Worksheet Patient Problems: Problems Problem Status Onset Fusion of lumbar spine Acute - ICD10 Problem Qualifiers (1) Fusion of lumbar spine
[2016-05-05] MEDS: SODIUM CHLORIDE 1,000 MG TAB PO SCH ×3 (08:05→18:11)
[2016-05-05] MEDS: FAMOTIDINE 20 MG TAB PO SCH ×2 (08:32→20:52)
[2016-05-05] MEDS: ATORVASTATIN CALCIUM 10 MG TAB PO SCH (08:32)
[2016-05-05] MEDS: SENNOSIDES/DOCUSATE SODIUM TAB PO SCH ×2 (08:33→20:55)
[2016-05-05] MEDS: TAMSULOSIN HCL 0.4 MG CAP PO SCH (08:33)
[2016-05-05] MEDS: POLYETHYLENE GLYCOL 3350 17 GM PKT PO SCH ×3 (08:34→20:55)
[2016-05-05] MEDS: HYDROCODONE/APAP 10/325 TAB PO PRN ×2 (11:02→18:12)
[2016-05-05 11:09] LABS: POTASSIUM 4.2 mEq/L (3.5-5.2)
[2016-05-05] MEDS ORDERED: LIDOCAINE 1% 30 ML SDV ONE (12:12)
[2016-05-05] MEDS ORDERED: IOPAMIDOL (ISOVUE-M 300) 15 ML VIAL IV ONE (12:12)
[2016-05-05] MEDS: ENOXAPARIN 40 MG/0.4 ML SYR SC SCH (14:22)
[2016-05-05] MEDS: BISACODYL 10 MG SUPP PR PRN (16:09)
[2016-05-05 22:24] LABS: COLOR YELLOW; LEUKOCYTE ESTERASE,URINE 1+ (NEGATIVE); NITRITE,URINE NEGATIVE (NEGATIVE)
[2016-05-05 22:33] LABS: BACTERIA TRACE /hpf (NONE SEEN); MUCUS TRACE /lpf (NONE-1+)
[2016-05-06] MEDS: oxyCODONE IR 5 MG TAB PO PRN ×5 (01:39→20:01)
[2016-05-06] MEDS: DIAZEPAM 5 MG TAB PO PRN ×3 (01:39→22:33)
[2016-05-06] MEDS: HYDROCODONE/APAP 10/325 TAB PO PRN ×4 (06:22→22:29)
[2016-05-06] MEDS: FAMOTIDINE 20 MG TAB PO SCH ×2 (07:43→19:48)
[2016-05-06] MEDS: TAMSULOSIN HCL 0.4 MG CAP PO SCH (07:44)
[2016-05-06] MEDS: ATORVASTATIN CALCIUM 10 MG TAB PO SCH (07:44)
[2016-05-06] MEDS: ENOXAPARIN 40 MG/0.4 ML SYR SC SCH (07:51)
--- NOTE | 2016-05-06 07:54 | SOAPPROG ---
SOAP Progress Note Assessment/Plan: Assessment: 66 yo M POD #9 L2-5 TLIF Plan: stable, no headaches this am. Will have IR do right L5/S1 blood patch on ancef while drain in UA pending, will follow results drain in place, will keep drain clamped scd/eda/lovenox for dvt prophylaxis please call with neuro changes patient seen by Dr Jordan 04/27/16 13:10 04/29/16 07:45 04/30/16 07:11 05/04/16 10:30 05/05/16 07:45 05/06/16 07:52 Subjective: continued back pain, dull ache in legs. No N/V. No headaches. Objective: Vital Signs Temp Pulse Resp BP Pulse Ox 36.3 C 81 16 118/75 97 05/06/16 07:18 05/06/16 07:18 05/06/16 07:18 05/06/16 07:18 05/06/16 07:18 Laboratory Results 05/01/16 09:03 05/05/16 10:40 05/05/16 05/06/16 05/07/16 05:59 05:59 05:59 Intake Total 1900 2700 400 Output Total 1325 1050 Balance 575 1650 400 PT 13.7 SEC (12.0-15.0) 05/01/16 09:03 INR 1.06 (0.83-1.16) 05/01/16 09:03 AAOX4, +FC PERRL, EOMI, no facial droop 5/5 + light touch C/D/I ICD10 Worksheet Patient Problems: Problems Problem Status Onset Fusion of lumbar spine Acute - ICD10 Problem Qualifiers (1) Fusion of lumbar spine
[2016-05-06] MEDS: SENNOSIDES/DOCUSATE SODIUM TAB PO SCH ×2 (08:00→19:53)
[2016-05-06] MEDS: POLYETHYLENE GLYCOL 3350 17 GM PKT PO SCH ×3 (08:00→22:33)
[2016-05-06 13:45] LABS: ANION GAP 9 mEq/L (8-16); CALCIUM 9.6 mg/dL (8.5-10.4); CARBON DIOXIDE 24 mEq/l (22-31); CHLORIDE 97 mEq/L (97-110); CREATININE 0.6 mg/dL (0.7-1.3); GLOMERULAR FILTRATION RATE > 60; GLUCOSE 96 mg/dL (70-100); POTASSIUM 4.7 mEq/L (3.5-5.2); SODIUM 130 mEq/L (134-144)
[2016-05-06] MEDS: SODIUM CHLORIDE 1,000 MG TAB PO SCH ×3 (14:45→19:53)
[2016-05-07] MEDS: oxyCODONE IR 5 MG TAB PO PRN ×5 (00:50→21:02)
[2016-05-07] MEDS: HYDROCODONE/APAP 10/325 TAB PO PRN ×4 (04:18→23:53)
--- NOTE | 2016-05-07 08:10 | SOAPPROG ---
SOAP Progress Note Assessment/Plan: Assessment: 66 yo M POD #10 L2-5 TLIF Plan: stable, no headaches this am. on ancef while drain in, will stop now UA pending, will follow results drain removed scd/eda/lovenox for dvt prophylaxis advance activity on Wednesday please call with neuro changes patient seen by Dr Jordan 04/27/16 13:10 04/29/16 07:45 04/30/16 07:11 05/04/16 10:30 05/05/16 07:45 05/06/16 07:52 05/07/16 08:09 Subjective: some soreness in back, no leg pain, no weakness, no headaches Objective: Vital Signs Temp Pulse Resp BP Pulse Ox 36.9 C 85 16 109/73 93 05/06/16 23:20 05/06/16 23:20 05/06/16 23:20 05/06/16 23:20 05/06/16 23:20 Laboratory Results 05/01/16 09:03 05/06/16 12:20 05/06/16 05/07/16 05/08/16 05:59 05:59 05:59 Intake Total 2700 1350 Output Total 1050 1750 Balance 1650 -400 PT 13.7 SEC (12.0-15.0) 05/01/16 09:03 INR 1.06 (0.83-1.16) 05/01/16 09:03 AAOX4, +FC PERRL, EOMI, no facial droop 5/5 + light touch C/D/I ICD10 Worksheet Patient Problems: Problems Problem Status Onset Fusion of lumbar spine Acute - ICD10 Problem Qualifiers (1) Fusion of lumbar spine
[2016-05-07] MEDS: SODIUM CHLORIDE 1,000 MG TAB PO SCH ×3 (09:08→17:56)
[2016-05-07] MEDS: POLYETHYLENE GLYCOL 3350 17 GM PKT PO SCH ×3 (09:09→22:00)
[2016-05-07] MEDS: TAMSULOSIN HCL 0.4 MG CAP PO SCH (09:09)
[2016-05-07] MEDS: FAMOTIDINE 20 MG TAB PO SCH ×2 (09:09→21:03)
[2016-05-07] MEDS: ATORVASTATIN CALCIUM 10 MG TAB PO SCH (09:09)
[2016-05-07] MEDS: SENNOSIDES/DOCUSATE SODIUM TAB PO SCH ×2 (09:09→22:00)
[2016-05-07] MEDS: ENOXAPARIN 40 MG/0.4 ML SYR SC SCH (09:12)
[2016-05-07] MEDS: DIAZEPAM 5 MG TAB PO PRN (21:03)
[2016-05-08] MEDS: oxyCODONE IR 5 MG TAB PO PRN ×4 (01:02→22:16)
[2016-05-08] MEDS: HYDROCODONE/APAP 10/325 TAB PO PRN ×3 (06:00→18:07)
[2016-05-08] MEDS ORDERED: HYDROCODONE/APAP 10/325 TAB PO PRN (07:55)
[2016-05-08] MEDS ORDERED: oxyCODONE IR 5 MG TAB PO PRN (07:56)
[2016-05-08] MEDS: ATORVASTATIN CALCIUM 10 MG TAB PO SCH (08:46)
[2016-05-08] MEDS: SODIUM CHLORIDE 1,000 MG TAB PO SCH ×3 (08:46→18:07)
[2016-05-08] MEDS: ENOXAPARIN 40 MG/0.4 ML SYR SC SCH (08:47)
[2016-05-08] MEDS: POLYETHYLENE GLYCOL 3350 17 GM PKT PO SCH ×3 (08:47→20:54)
[2016-05-08] MEDS: METHOCARBAMOL 750 MG TAB PO SCH ×2 (08:47→16:03)
[2016-05-08] MEDS: TAMSULOSIN HCL 0.4 MG CAP PO SCH (08:47)
[2016-05-08] MEDS: FAMOTIDINE 20 MG TAB PO SCH ×2 (08:47→20:54)
[2016-05-08] MEDS: SENNOSIDES/DOCUSATE SODIUM TAB PO SCH ×2 (08:47→20:54)
--- NOTE | 2016-05-08 14:27 | GPROG ---
[f rep st] PROGRESS NOTE NEUROSURGICAL PROGRESS NOTE. SUBJECTIVE: The patient is lying in bed with head of bed flat. He is comfortable today. He states his pain is well-controlled currently, however, overnight had severe low back pain and muscle spasm s near the incision, with one episode of pain radiating down the anterior left leg and pretibial reg ion. This has subsequently resolved. PHYSICAL EXAMINATION: VITAL SIGNS: Objective data reviewed, blood pressure is 111/85, heart rate i s 89, respiratory rate is 14. GENERAL: A pleasant, healthy-appearing 66-year-old male, in no apparent distress. His incision is clean, dry, and intact with no evidence of drainage or clear fluid, swelling, erythema, or signs of infection. NEUROLOGIC: He is awake, alert and oriented x4, he has equal and symmetric strength of the bilatera l upper and lower extremities with normal sensation in all dermatomal distributions of the bilateral upper and lower extremities. IMAGING: AP and lateral x-rays of the lumbar spine performed on 05/03/2016 demonstrate satisfactory position of the hardware. LABORATORY DATA: Lab results, no new labs today. IMPRESSION: This is a 66-year-old male, who is postoperative day #11 after undergoing an L2-L5 tong sforaminal lumbar interbody fusion complicated by an intraoperative durotomy requiring subsequent bl ood patch. The patient remains neurologically stable. His head of bed is flat, and he has not had any headaches since lying flat. He is maintained on Lovenox for deep venous thrombosis prophylaxis. PLAN: All the above issues were discussed with the patient in detail, as well as with his who is present. At this time we recommend that the patient maintain head of bed flat until 2016, at which point we will gradually raises his head of bed up 10 degrees an hour startin g at 6:00 a.m. If he does not develop any headaches during that period, the patient's activity will be advanced with physical therapy. /[id number]/MODL
[2016-05-08] MEDS ORDERED: DIAZEPAM 5 MG TAB PO SCH (21:00)
[2016-05-09] MEDS: HYDROCODONE/APAP 10/325 TAB PO PRN ×5 (00:10→23:56)
[2016-05-09] MEDS: oxyCODONE IR 5 MG TAB PO PRN ×4 (03:09→21:33)
[2016-05-09] MEDS: METHOCARBAMOL 750 MG TAB PO SCH ×2 (08:09→15:59)
[2016-05-09] MEDS: FAMOTIDINE 20 MG TAB PO SCH ×2 (08:10→20:05)
[2016-05-09] MEDS: ENOXAPARIN 40 MG/0.4 ML SYR SC SCH (08:10)
[2016-05-09] MEDS: SENNOSIDES/DOCUSATE SODIUM TAB PO SCH ×2 (08:14→20:05)
[2016-05-09] MEDS: SODIUM CHLORIDE 1,000 MG TAB PO SCH ×3 (08:14→18:00)
[2016-05-09] MEDS: ATORVASTATIN CALCIUM 10 MG TAB PO SCH (08:14)
[2016-05-09] MEDS: TAMSULOSIN HCL 0.4 MG CAP PO SCH (08:14)
[2016-05-09] MEDS: POLYETHYLENE GLYCOL 3350 17 GM PKT PO SCH ×3 (08:21→20:05)
--- NOTE | 2016-05-09 13:19 | GPROG ---
[f rep st] PROGRESS NOTE NEUROSURGERY PROGRESS NOTE. SUBJECTIVE: Patient is lying in bed, flat. States that this morning his pain in his leg and his ba ck spasms are much better. However, overnight he did have another severe episode of back spasms whi ch corresponded to radiating leg pain as well. The patient states that he does best with valium at night and Robaxin during the day and would like to make sure that his medication schedule is set to be that way. The patient is eager to go home tomorrow. OBJECTIVE: VITAL SIGNS: Blood pressure 116/77, heart rate is 80, no pulse recorded respiratory rat e is 14, O2 saturation is 96% on room air. Temperature is 36.3 degrees Celsius. GENERAL: The patrice ent is in no acute distress. He is lying flat. NEUROLOGIC: Bilateral lower extremities are 5/5 an d equal in strength. Sensation is intact to light touch. SKIN: His incision is clean, dry, and in tact without any evidence of erythema, drainage or swelling. LABORATORY DATA: No new laboratory results today. ASSESSMENT: This is a 66-year-old gentleman who is postoperative day 12 after undergoing an L2 to L 5 transforaminal lumbar interbody fusion complicated by an intraoperative durotomy requiring subsequ ent blood patch. The patient remains neurologically stable. His head of bed is flat and he has not had any headaches since lying flat. We will keep him on Lovenox for DVT prophylaxis. PLAN: I did discuss with the patient in detail our plan as well as with the who is present at the bedside. At this time we will recommend that the patient maintain head of bed flat until WednesdayMay 10 at which point we will gradually raise his head of bed up 10 degrees an hour, startin g at 6 a.m. If the patient does not develop any headaches during that period, the patient's activit y will be advanced with Physical Therapy. He will then be discharged home, planning for tomorrow if raise of bed is tolerated and will discuss plans with the patient further at that time as to his ac tivity restrictions when he goes home. We will also look at his medications to adjust for him to ge t Valium at night and Robaxin during the day to control muscle spasms. Please contact Neurosurgery with any questions or concerns. /[id number]/MODL
[2016-05-09] MEDS: DIAZEPAM 5 MG TAB PO PRN (21:33)
[2016-05-10 00:18] VITALS: RESP 16
[2016-05-10] MEDS: oxyCODONE IR 5 MG TAB PO PRN ×2 (03:55→10:16)
[2016-05-10] MEDS: HYDROCODONE/APAP 10/325 TAB PO PRN ×3 (06:12→14:18)
[2016-05-10] MEDS: METHOCARBAMOL 750 MG TAB PO SCH ×2 (07:59→15:19)
[2016-05-10] MEDS: SODIUM CHLORIDE 1,000 MG TAB PO SCH ×2 (08:02→12:35)
[2016-05-10 08:17] VITALS: BP 110/85; PULSE 91; TEMP 97.4; O2SAT 95
[2016-05-10] MEDS: TAMSULOSIN HCL 0.4 MG CAP PO SCH (09:00)
[2016-05-10] MEDS: ENOXAPARIN 40 MG/0.4 ML SYR SC SCH (09:00)
[2016-05-10] MEDS: FAMOTIDINE 20 MG TAB PO SCH (09:00)
[2016-05-10] MEDS: POLYETHYLENE GLYCOL 3350 17 GM PKT PO SCH (09:00)
[2016-05-10] MEDS: SENNOSIDES/DOCUSATE SODIUM TAB PO SCH (09:00)
[2016-05-10] MEDS: ATORVASTATIN CALCIUM 10 MG TAB PO SCH (09:00)
--- NOTE | 2016-05-10 14:31 | PDIAF ---
- Diagnosis Code Status: Full Code - Medication Management Discharge Medications: Medications to Continue on Transfer Simvastatin [Zocor 20 mg] 20 mg PO DAILY 03/04/12 [Last Taken 04/27/16] Docusate Sodium [Colace 100 MG (*)] 100 mg PO BID 04/03/16 [Last Taken 04/26/16] Polyethylene Glycol 3350 [Miralax 17 gm (*)] 17 gm PO TID 04/03/16 [Last Taken 04/26/16] Tamsulosin HCl [Flomax 0.4 MG (*)] 0.4 mg PO DAILY 04/03/16 [Last Taken 04/27/16 ] Acetaminophen [Tylenol 325mg (*)] 325 - 650 mg PO Q4HRS PRN #0 tab 05/10/16 [ Last Taken Unknown] Enoxaparin [Lovenox 40 MG (*)] 40 mg SC DAILY #0 syr 05/10/16 [Last Taken Unknown] HYDROcodone/APAP 10/325 [Acushnet 10/325 (*)] 1 - 2 tab PO Q6HRS PRN #90 tab [Last Taken Unknown] Methocarbamol [Robaxin 750 mg (*)] 750 mg PO BID@0800,1600 #60 tab 05/10/16 [ Last Taken Unknown] Sennosides/Docusate Sodium [Senokot-S] 1 - 2 tab PO BID #0 tab 05/10/16 [Last Taken Unknown] oxyCODONE IR [Oxycodone Ir (*)] 10 mg PO Q4 PRN #90 tab 05/10/16 [Last Taken Unknown] Nematologist Antibiotics: n/a Discharge Medications: Refer to the Discharge Home Medication list for PRN reason. - Orders Services needed: Home Care, Physical Therapy Home Care Face to Face: I certify that this patient was under my care and that I had the required [id number] encounter meeting the encounter requirements on the discharge day. My findings support the fact that the patient is homebound as defined in CMS Chapter 7 Medicare Benefits Manual 30.1.1, The condition of the patient is such that there exists a normal inability to leave home and consequently, leaving home would require a considerable and taxing effort. Diet Recommendation: no restrictions on diet Diet Texture: Regular Texture Diet Myles Stockings Discontinue Date: when up and walking 100 yards three times per day Wound Care Instructions: Keep clean and dry, gauze not necessary. May shower keep short 5-7 minutes no scrubbing incision Activity/Weight Bearing Restrictions: Activity instructions per Dr. Hitchcock. Wear brace when out of bed. No bending at the waist, twisting, or lifting more severino 5 -10 pounds Equipment: brace Additional: Please continue Lovenox for 2 weeks after discharge - Follow Up Care Current Providers and Referrals: Salvador Fisher MD [Primary Care Provider] - Jason Robles MD [Medical Doctor] - follow up in 2 weeks (May 20)
--- NOTE | 2016-05-10 15:59 | GPROG ---
[f rep st] PROGRESS NOTE NEUROSURGERY FOLLOWUP NOTE SUBJECTIVE: Patient continues to lie in bed. He just had his bed raised 10 degrees, and he states that he has no headache currently. He slept well. He is eager to get home and advance his activity today. OBJECTIVE: VITAL SIGNS: Blood pressure 110/85, heart rate 91, respiratory rate 16, O2 sat is 95% on room air. GENERAL: Patient is in no acute distress. EXTREMITIES: His bilateral lower extremities are 5/5 and equal in strength. His sensation is intact to light touch. His incision is clean, dry, and intact with sutures in place, with no evidence of erythema or drainage or swelling. LABORATORY DATA: There is no new laboratory data to report. ASSESSMENT AND PLAN: This is a 66-year-old male who is postoperative day 13 after undergoing an L2 to L5 transforaminal lumbar interbody fusion, complicated by intraoperative durotomy requiring subsequent blood products. The patient remains neurologically stable. He is tolerating his head of bed being raised by 10 degrees per hour starting at 7 a.m. this morning. PLAN: If patient continues to tolerate head of bed raising by 10 degrees per hour without any headaches or any other issues, patient will be cleared for discharge home later today. PT and Occupational Therapy will come visit the patient later and make sure that he is stable enough to go home. I talked with the patient's as well as the patient this morning about activity restrictions continuing when they go home.. Dr. Robles also called the patient today to describe activity orders once he goes home. He will be sent home with 2 weeks of Lovenox, as well as a script for Lamont, oxycodone, and Robaxin. He is to follow up with Dr. Robles in 2 weeks. /[id number]/MODL MTDD
== END 2016-05-10 16:03 | disposition home health service (06) | DRG 460 ==
LOC: F3N 05:55
PROVIDERS: ADMIT Neurological Surgery; ATTEND Neurological Surgery
PROC: 4A1004G Monitoring of Central Nervous Electrical Activity, Intraoperative, Open Approach (ICD-10-PCS; principal; 2016-04-27 07:15)
PROC: 8E0WXBZ Computer Assisted Procedure of Trunk Region (ICD-10-PCS; principal; 2016-04-27 07:15)
PROC: 00NY0ZZ Release Lumbar Spinal Cord, Open Approach (ICD-10-PCS; principal; 2016-04-27 07:15)
PROC: 00Q20ZZ Repair Dura Mater, Open Approach (ICD-10-PCS; principal; 2016-04-27 07:15)
PROC: 0SG10AJ Fusion of 2 or more Lumbar Vertebral Joints with Interbody Fusion Device, Posterior Approach, Anterior Column, Open Approach (ICD-10-PCS; principal; 2016-04-27 07:15)
PROC: 009Y30Z Drainage of Lumbar Spinal Cord with Drainage Device, Percutaneous Approach (ICD-10-PCS; 2016-05-01)
PROC: 3E0S3GC Introduction of Other Therapeutic Substance into Epidural Space, Percutaneous Approach (ICD-10-PCS; 2016-05-05)
DX: M51.36 Other intervertebral disc degeneration, lumbar region (principal); G97.41 Accidental puncture or laceration of dura during a procedure; M47.896 Other spondylosis, lumbar region; M48.06 Spinal stenosis, lumbar region; Z96.643 Presence of artificial hip joint, bilateral; E78.00 Pure hypercholesterolemia, unspecified; N40.0 Benign prostatic hyperplasia without lower urinary tract symptoms; M43.22 Fusion of spine, cervical region
CPT/HCPCS: 97116-GP; 97162-GP; 97165-GO; 97530-GO; 97530-GP; 97535-GO; C1713; C1729; C1769; J0360; J0690; J1100; J1170; J1650; J2001; J2250; J2274; J2310; J2370; J2405; J2550; J2704; J3010; J7060; P9041; Q9967

== ENCOUNTER → 2016-06-19 | Outpatient (CLI) | payer OTHER | LOC: FIMAGING 12:00 | PROVIDERS: ATTEND Physician Assistant Surgical | DX: Z98.1 Arthrodesis status (principal); M54.12 Radiculopathy, cervical region ==

== ENCOUNTER → 2016-07-03 | Outpatient (CLI) | payer OTHER ==
[~2016-07-03] MED LIST: GADOBUTROL 10 ML VIAL IVP ONE
== END ==
LOC: FIMAGING 08:00
PROVIDERS: ATTEND Urology
DX: Z85.46 Personal history of malignant neoplasm of prostate (principal); Z96.643 Presence of artificial hip joint, bilateral
CPT/HCPCS: A9585

== ENCOUNTER → 2016-07-07 | Outpatient (CLI) | payer OTHER | LOC: FIMAGING 18:44 | PROVIDERS: ATTEND Physician Assistant Surgical | DX: Z09 Encounter for follow-up examination after completed treatment for conditions other than malignant neoplasm (principal); Z98.1 Arthrodesis status ==

== ENCOUNTER → 2016-08-14 | Outpatient (CLI) | payer OTHER ==
[~2016-08-14] MED LIST changes: +DEPO METHYLPREDNISOLONE 80 MG/ML SDV ONE; -GADOBUTROL 10 ML VIAL IVP ONE; +LIDOCAINE 1% 300 MG/30 ML SDV ONE
== END ==
LOC: FIMAGING 09:34
PROVIDERS: ATTEND Radiology Diagnostic Radiology
DX: S43.402A Unspecified sprain of left shoulder joint, initial encounter (principal)
CPT/HCPCS: J1040

== ENCOUNTER → 2016-10-30 | Outpatient (CLI) | payer OTHER | LOC: BMCIMAGING 10:56 | PROVIDERS: ATTEND Physician Assistant Surgical | DX: Z09 Encounter for follow-up examination after completed treatment for conditions other than malignant neoplasm (principal); Z98.1 Arthrodesis status; M47.896 Other spondylosis, lumbar region; M47.897 Other spondylosis, lumbosacral region; M47.892 Other spondylosis, cervical region; M47.893 Other spondylosis, cervicothoracic region; K59.00 Constipation, unspecified ==

== ENCOUNTER → 2017-04-22 | Outpatient (CLI) | payer OTHER | LOC: BMCIMAGING 10:12 | PROVIDERS: ATTEND Physician Assistant Surgical | DX: Z09 Encounter for follow-up examination after completed treatment for conditions other than malignant neoplasm (principal); Z98.1 Arthrodesis status ==

== ENCOUNTER 2017-07-29 07:15 | Inpatient (IN) | payer OTHER ==
[~2017-07-29 07:15] MED LIST changes: +*PREOP 1000MG*TRANEX ACID/NS 100 ML IV ONE; -DEPO METHYLPREDNISOLONE 80 MG/ML SDV ONE; -LIDOCAINE 1% 300 MG/30 ML SDV ONE; +TRANEXAMIC ACID 1,000 MG in NS (SYRINGE) 50 ML IV ONE
[2017-07-29] MEDS ORDERED: ceFAZolin 2 GM/SWFI 2 GM/20 ML SYR IVP ONE (09:28)
[2017-07-29] MEDS ORDERED: morphINE PF 0.2 MG in SYRINGE INTRATHECAL 1 SYR IT ONE (09:28)
[2017-07-29] MEDS ORDERED: GABAPENTIN 300 MG CAP PO ONE (09:28)
[2017-07-29] MEDS ORDERED: ACETAMINOPHEN 500 MG TAB PO ONE (09:28)
[2017-07-29] MEDS ORDERED: fentaNYL 50 MCG in SYRINGE INTRATHECAL 1 SYR IT ONE (09:28)
[2017-07-29] MEDS ORDERED: LR 1,000 ML IV ONE (09:32)
--- NOTE | 2017-07-29 10:10 | PDHPUP ---
History & Physical Update H&P update statement: This history and physical update is based on an assessment of the patient which was completed after admission or registration (within 24 hours), but prior to the surgery/procedure. H&P update: H&P reviewed & patient examined, no change in patient's condition since H&P completed
[2017-07-29] MEDS ORDERED: BUPIVACAINE 0.25% 30 ML SDV ONE (10:24)
[2017-07-29] MEDS ORDERED: THROMBIN (BOVINE) 5,000 UNIT VIAL TP ONE (10:24)
[2017-07-29] MEDS ORDERED: EPINEPHrine 1 MG/ML INJ ONE (10:25)
[2017-07-29] MEDS ORDERED: CITRATE DEXTROSE SOLN 500 ML BAG ONE ×2 (10:25→12:54)
[2017-07-29] MEDS ORDERED: BACITRACIN 50,000 UNITS/10 ML SYR IRR ONE ×2 (10:26→10:56)
--- NOTE | 2017-07-29 10:35 | PDANEPAE ---
ANE History of Present Illness Patient presents for L5-S1 TLIF ANE Past Medical History - Cardiovascular History Hx Hypertension: No Hx Arrhythmias: No Hx Chest Pain: No Hx Coronary Artery / Peripheral Vascular Disease: No Hx CHF / Valvular Disease: No Hx Palpitations: No Cardiovascular History Comment: high chol - Pulmonary History Hx COPD: No Hx Asthma/Reactive Airway Disease: No Hx Recent Upper Respiratory Infection: No Hx Oxygen in Use at Home: No Hx Sleep Apnea: No Sleep Apnea Screening Result - Last Documented: Negative - Neurologic History Hx Cerebrovascular Accident: No Hx Seizures: No Hx Dementia: No Neurologic History Comment: N/T MEREDITH LOWER EXT - Endocrine History Hx Diabetes: No - Renal History Hx Renal Disorders: Yes Renal History Comment: bph - Liver History Hx Hepatic Disorders: No - Neurological & Psychiatric Hx Hx Neurological and Psychiatric Disorders: No - Cancer History Hx Cancer: Yes Cancer History Comment: 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 non-hodgkins lymphoma had surgery and chemo 2012 - Congenital Disorder History Hx Congenital Disorders: No - GI History Hx Gastrointestinal Disorders: No - Other Health History Other Health History: psoriasis - Chronic Pain History Chronic Pain: Yes (LOWER LUMBAR REGION N/T MEREDITH LE) - Surgical History Prior Surgeries: LUMBAR FUSION 05/11/2016. cervical fusion 1999 & 03/2016. exp lap. hemorrhoidectomy. MEREDITH TOTAL HIP ANE Review of Systems Review of Systems: - Exercise capacity METS (RN): 4 METS ANE Patient History - Allergies Allergies/Adverse Reactions: tramadol Allergy (Unknown, Verified 04/07/16 14:01) Unknown - Home Medications Home medications: home medication list seen and reviewed Home Medications: Simvastatin [Zocor 20 mg] 20 mg PO DAILY 03/04/12 [Last Taken 07/29/17 07:00] Tamsulosin HCl [Flomax 0.4 MG (*)] 0.4 mg PO BID 04/03/16 [Last Taken 07/29/17 07:00] Ipratropium 0.06% Nasal [Atrovent 0.06% Nasal (RX)] 2 sprays EACHNARE DAILY PRN 07/12/17 [Last Taken 07/22/17] - NPO status NPO Status: no food or drink >8 hours NPO Since - Liquids (Date): 07/28/17 NPO Since - Liquids (Time): 23:00 NPO Since - Solids (Date): 07/28/17 NPO Since - Solids (Time): 20:00 - Anes Hx Anes Hx: no prior problems - Smoking Hx Smoking Status: Never smoked - Family Anes Hx Family Hx Anesthesia Complications: None ANE Labs/Vital Signs - Vital Signs Blood Pressure: 132/86 Heart Rate: 62 Respiratory Rate: 16 O2 Sat (%): 95 Height: 177.8 cm Weight: 65.771 kg ANE Physical Exam - Airway Neck exam: FROM Mallampati Score: Class 2 Mouth exam: normal dental/mouth exam - Pulmonary Pulmonary: no respiratory distress - Cardiovascular Cardiovascular: regular rate and rhythym - ASA Status ASA Status: II ANE Anesthesia Plan Anesthesia Plan: general endotracheal anesthesia Lines/Monitors: arterial line (RBA discussed)
[2017-07-29] MEDS ORDERED: PROPOFOL 200 MG/20 ML VIAL ONE (10:37)
[2017-07-29] MEDS ORDERED: REMIFENTANIL HCL 1 MG VIAL ONE ×2 (10:37)
[2017-07-29] MEDS ORDERED: PROPOFOL/EMULSION 500 MG/50 ML BOTTLE IV ONE ×2 (10:37→13:28)
[2017-07-29] MEDS ORDERED: fentaNYL 100 MCG/2 ML INJ ONE ×3 (10:37→15:52)
[2017-07-29] MEDS ORDERED: ROCURONIUM 50 MG/5 ML VIAL ONE (10:50)
[2017-07-29] MEDS ORDERED: PHENYLEPHRINE HCL 100 MCG/ML SYR ONE (11:37)
[2017-07-29] MEDS ORDERED: PHENYLEPHRINE 10 MG/ML SDV ONE (12:01)
[2017-07-29] MEDS ORDERED: ONDANSETRON 4 MG/2 ML VIAL ONE (12:08)
[2017-07-29] MEDS ORDERED: DEXAMETHASONE 4 MG/ML VIAL ONE (12:08)
[2017-07-29] MEDS ORDERED: GLYCOPYRROLATE 0.2 MG/1 ML VIAL ONE (12:57)
[2017-07-29] MEDS ORDERED: ALBUMIN 5% 250 ML BOTTLE IV ONE (13:09)
[2017-07-29] MEDS ORDERED: ceFAZolin 1 GM VIAL ONE (14:08)
[2017-07-29] MEDS ORDERED: morphINE PF 5 MG/10 ML INJ ONE (14:13)
[2017-07-29] MEDS ORDERED: LR 500 ML IV PRN (14:32)
[2017-07-29] MEDS ORDERED: NALOXONE HCL 0.4 MG/ML INJ IVP PRN ×2 (14:32→14:42)
[2017-07-29] MEDS ORDERED: HYDROmorphONE/DILAUDID 2 MG/ML INJ IVP PRN (14:32)
[2017-07-29] MEDS ORDERED: oxyCODONE IR 5 MG TAB PO PRN (14:32)
[2017-07-29] MEDS ORDERED: diphenhydrAMINE 25 MG CAP PO PRN (14:42)
[2017-07-29] MEDS ORDERED: ONDANSETRON DISINTEGRATING 4 MG TAB PO PRN (14:42)
[2017-07-29] MEDS ORDERED: MAGNESIUM HYDROXIDE 30 ML UDCUP PO PRN (14:42)
[2017-07-29] MEDS ORDERED: LACTULOSE 20 GM/30 ML UDCUP PO PRN (14:42)
[2017-07-29] MEDS ORDERED: BISACODYL 10 MG SUPP PR PRN (14:42)
[2017-07-29] MEDS ORDERED: IPRATROPIUM 0.06% NASAL SPRAY EACHNARE PRN (14:42)
[2017-07-29] MEDS ORDERED: morphINE PCA 30 MG/30 ML PCA IV PRN (14:42)
[2017-07-29] MEDS ORDERED: ONDANSETRON 4 MG/2 ML VIAL IVP PRN (14:42)
[2017-07-29] MEDS ORDERED: NS W/ 20 KCl/L 1,000 ML IV SCH (14:45)
--- NOTE | 2017-07-29 14:49 | SOAPPROG ---
SOAP Progress Note Assessment/Plan: Assessment: 67 yo M sp L2-5 hardware removal, L5/S1 TLIF with L4-S1 fusion Plan: stable to 3N LSO brace when out of bed PT/OT lovenox starts 07/30 please call with neuro changes 07/29/17 14:48 Subjective: + back pain, no leg pain. Objective: Vital Signs Temp Pulse Resp BP Pulse Ox 36.4 C 62 16 132/86 H 95 07/29/17 09:34 07/29/17 10:35 07/29/17 10:35 07/29/17 10:35 07/29/17 10:35 somnolent PERRL, EOMI ELENI x 4 + light touch ICD10 Worksheet Patient Problems: Problems Problem Status Onset Fusion of lumbar spine Acute
[2017-07-29] MEDS ORDERED: DIAZEPAM 5 MG TAB PO PRN (14:52)
--- NOTE | 2017-07-29 15:02 | PDMN ---
Medical Necessity Medical necessity: Patient meets inpatient criteria per PA note and [facility] [place] [place] (removal of lumbar hardware and revision of lumbar fusion; CPT 20354 / Medicare inpatient-only surgery.)
--- NOTE | 2017-07-29 15:03 | POSTANESTH ---
Post Anesthetic Evaluation Cardiovascular Status: Similar to Pre-Op Cond Respiratory Status: Similar to Pre-op Cond. Level of Consciousness/Mental Status: Can Participate in Eval Pain Control: Adequate, Prn Tx Ordered Nausea/Vomiting Control: Adequate, Prn Tx Ordered Complications Possibly Related to Anesthesia: None Noted
--- NOTE | 2017-07-29 15:35 | GOP ---
[f rep st] OPERATIVE REPORT DATE OF OPERATION: 07/29/2017 SURGEON: Jason Robles MD NEUROSURGEON: Jason Robles MD. SUPER[employer]: SIRENA Marquez. ANESTHESIA: General endotracheal. PREOPERATIVE DIAGNOSIS: Severe L5-S1 degenerative disk disease and collapse/adjacent level degenerat ion with critical left-sided L5 neural foraminal impingement. Intractable low back pain and left L5 radiculopathy. Failed conservative care. POSTOPERATIVE DIAGNOSIS: Severe L5-S1 degenerative disk disease and collapse/adjacent level degenera tion with critical left-sided L5 neural foraminal impingement. Intractable low back pain and left L5 radiculopathy. Failed conservative care. PROCEDURE PERFORMED: Removal of posterior segmental (pedicle screws) fixation from L2-L5 with explor ation of spinal fusion at those levels. Left-sided L5-S1 far lateral transpedicular decompression wi th L4 through S1 posterior segmental (pedicle screw and axle device) fixation and posterolateral fusi on with local autograft, bone morphogenic protein and morselized allograft. L5-S1 posterior/transfor aminal lumbar interbody fusion with 2 structural PEEK interbody spacers, and local autograft. Use of intraoperative microscopy, fluoroscopy and computer volumetric stereotactic navigation with intraope rative neurophysiologic testing. Injection of intrathecal narcotic analgesics and subcutaneous and i ntramuscular local anesthesia for postoperative pain control. FINDINGS: ESTIMATED BLOOD LOSS: 350 cc. INDICATIONS: The patient is a 67-year-old male with intractable low back pain and left lower extremi ty radicular symptoms, secondary to severe adjacent level degeneration at the L5-S1 level, a status p ost prior L2-L5 decompression and stabilization. Critical neural foraminal encroaching on the left causing intractable low back pain and left lower extremity radicular discomfort. He has failed conse rvative care and presents now for surgical decompression and stabilization, removal and replacement o f hardware and exploration of spinal fusion. DESCRIPTION OF PROCEDURE: After informed consent was obtained, the patient was taken to the operatin g room and placed in the prone position on the Ck table. The lumbosacral area was prepped and d raped in sterile fashion. After fluoroscopic localization of the correct level, the subcutaneous and intramuscular tissues were infiltrated with local anesthesia. A midline linear incision was then cr eated from approximately L2-S1. This was carried down to the fascial layer, which was incised using monopolar electrocautery and carried in the subperiosteal plane along the spinous processes and gus a bilaterally. The prior hardware was identified and carefully dissected out. The exposure was exte nded laterally over the facet joints at L5-S1. The pedicle screws and rods and locking caps were the n removed from L2-L5 and all the scar tissue and other material along the bone was carefully removed. A left-sided L5-S1 far lateral transpedicular decompression was performed with complete unroofing o f the facet joint and neural foramen at L5 and S1. Following adequate decompression, the [employer] ron[employer]igational System was brought in and using computer volumetric stereotactic navigation, pedicle s crews were placed at L4, L5 and S1 bilaterally. Each individual screw was tested neurophysiologicall y with monopolar electrostimulation and interpretation of the potentials by the surgeon. Some of the screws stimulated slightly low and I tested this on the lamina which was also low, as well as along the nerve root and felt that it was in the best interest of the patient to leave these screws in plac e. Biplanar fluoroscopy was utilized to verify good position of the screws. Following this, a pallavi w as placed and secured from L4-S1 under distraction across the L5-S1 disk space. A complete diskectom y was then performed at the L5-S1 level with preparation of the endplates and placement of 2 structur al PEEK interbody spacers, local autograft and bone morphogenic protein for an L5-S1 posterior/transf oraminal lumbar interbody fusion. The screw and pallavi system were then placed in a slight amount of co mpression across the L5-S1 interspace in order to facilitate bony union and to minimize the potential for posterior graft migration. An axial device was placed at the L5-S1 level for added stability, d ue to the fact that this was now the bottom of the long construct and to minimize the potential for h ardware failure and pseudarthrosis. Following this, 200 mcg of Duramorph along with 50 mcg of fentan yl were injected intrathecally. The remaining lamina and facet joint on the right at the L5-S1 level extending up to L4 was extensively decorticated, and the residual local autograft along with bone mo rphogenic protein and morselized allograft was placed out laterally for posterolateral fusion from L4 -S1. A drain was then placed and after re-verification of good position of the screws, rods and inte rbody spacers using biplanar fluoroscopy, the subcutaneous and intramuscular tissues were re-infiltra eda with local anesthesia and the wound was closed in a layered fashion using interrupted Vicryl sutu res followed by Steri-Strips on the skin. COMPLICATIONS: None. DISPOSITION: The patient is currently in the process of being repositioned for extubation. /[id number]/MODL
[2017-07-29] MEDS: fentaNYL 100 MCG/2 ML INJ IVP PRN ×2 (15:57→16:04)
[2017-07-29] MEDS ORDERED: HYDROmorphONE/DILAUDID 2 MG/ML INJ ONE (16:13)
[2017-07-29] MEDS ORDERED: LIDOCAINE 1% 2 ML INJ ONE (16:18)
[2017-07-29] MEDS: POLYETHYLENE GLYCOL 3350 17 GM PKT PO SCH ×2 (17:07→19:50)
[2017-07-29] MEDS: ceFAZolin 2 GM/SWFI 2 GM/20 ML SYR IVP SCH (19:50)
[2017-07-29] MEDS: METHOCARBAMOL 750 MG TAB PO PRN (19:59)
[2017-07-29] MEDS: morphINE SR 15 MG TAB PO SCH (20:55)
[2017-07-29] MEDS: GABAPENTIN 300 MG CAP PO SCH (20:55)
[2017-07-29] MEDS: ACETAMINOPHEN 500 MG TAB PO SCH (20:56)
[2017-07-29] MEDS: SENNOSIDES/DOCUSATE SODIUM TAB PO SCH (20:56)
[2017-07-29] MEDS: TAMSULOSIN HCL 0.4 MG CAP PO SCH (20:56)
[2017-07-29] MEDS: FAMOTIDINE 20 MG TAB PO SCH (20:56)
[2017-07-29] MEDS: oxyCODONE IR 5 MG TAB PO PRN (21:05)
[2017-07-29] MEDS ORDERED: ceFAZolin 2 GM/DEXTROSE 100 ML IV SCH (22:00)
[2017-07-30] MEDS: ceFAZolin 2 GM/SWFI 2 GM/20 ML SYR IVP SCH (04:10)
[2017-07-30 05:28] LABS: PLATELET COUNT 203 10^3/uL (150-400)
[2017-07-30] MEDS: GABAPENTIN 300 MG CAP PO SCH ×3 (05:36→22:06)
[2017-07-30] MEDS: ACETAMINOPHEN 500 MG TAB PO SCH ×3 (05:36→22:05)
--- NOTE | 2017-07-30 07:59 | SOAPPROG ---
SOAP Progress Note Assessment/Plan: Assessment: POD #1 67 yo male s/p sp L2-5 hardware removal, L5/S1 TLIF L4-S1 fusion Doing well this AM Pain well controlled Plan: Continue TU drain to bulb suction LSO when OOB PT/OT as tolerated lumbar xrays today 07/30/17 07:55 Subjective: awake, alert, comfortable, present. denies numbness, tingling or weakness Objective: Vital Signs Temp Pulse Resp BP Pulse Ox 36.7 C 73 18 93/69 L 100 07/30/17 04:00 07/30/17 04:00 07/30/17 04:00 07/30/17 04:00 07/30/17 04:00 Laboratory Results 07/30/17 04:38 07/30/17 04:38 07/29/17 07/30/17 07/31/17 05:59 05:59 05:59 Intake Total 2630 Output Total 3565 Balance -935 Neuro: Clifford to command sens +LT 5/5 bilateral LE throughout TU: 340ml ICD10 Worksheet Patient Problems: Problems Problem Status Onset Fusion of lumbar spine Acute
[2017-07-30] MEDS: ENOXAPARIN 40 MG/0.4 ML SYR SC SCH (09:34)
[2017-07-30] MEDS: POLYETHYLENE GLYCOL 3350 17 GM PKT PO SCH ×3 (09:34→22:07)
[2017-07-30] MEDS: SENNOSIDES/DOCUSATE SODIUM TAB PO SCH ×2 (09:35→20:02)
[2017-07-30] MEDS: FAMOTIDINE 20 MG TAB PO SCH ×2 (09:35→20:01)
[2017-07-30] MEDS: TAMSULOSIN HCL 0.4 MG CAP PO SCH ×2 (09:35→20:02)
[2017-07-30] MEDS: oxyCODONE IR 5 MG TAB PO PRN ×3 (09:36→16:51)
[2017-07-30] MEDS: morphINE SR 15 MG TAB PO SCH ×2 (09:36→20:02)
[2017-07-30] MEDS: ATORVASTATIN CALCIUM 10 MG TAB PO SCH (09:36)
--- NOTE | 2017-07-30 16:05 | ASMTCMCOM ---
CM Note CM Note Notes: Pt s/p hardware removal, TLIF and fusion. OT/PT rec home. Anticipate pt will d/c when medically stable with spouse support. CM available for changes/needs. Date Signed: 07/30/2017 04:05 PM Electronically Signed By:ARVIND Siddiqui
[2017-07-30] MEDS ORDERED: PHENAZOPYRIDINE HCL 100 MG TAB PO ONE (17:45)
[2017-07-30] MEDS ORDERED: PHENAZOPYRIDINE HCL 200 MG TAB PO SCH (19:00)
[2017-07-30] MEDS: PHENAZOPYRIDINE HCL 100 MG TAB PO SCH (20:02)
[2017-07-31] MEDS: GABAPENTIN 300 MG CAP PO SCH (07:22)
[2017-07-31] MEDS: ACETAMINOPHEN 500 MG TAB PO SCH ×2 (07:22→11:46)
[2017-07-31] MEDS: METHOCARBAMOL 750 MG TAB PO PRN ×2 (07:26→11:44)
[2017-07-31] MEDS: oxyCODONE IR 5 MG TAB PO PRN ×2 (07:27→11:44)
[2017-07-31 08:14] VITALS: BP 104/73
--- NOTE | 2017-07-31 09:06 | NEUSURGPN ---
Assessment/Plan: Assessment: POD #2 67 yo male s/p sp L2-5 hardware removal, L5/S1 TLIF L4-S1 fusion Doing well this AM Pain well controlled Plan: Continue TU drain to bulb suction - will dc with drain and call office on wednesday with output dressing change LSO when OOB PT/OT as tolerated lumbar xrays show stable hardware DC to home today Subjective: Pt resting in bed, he is feeling good and wants to go home Objective: AAOx3 NAD VSS MAEx4 Motor 5/5 BLE Incision dressed cdi JPx1 +LT Urinary Catheter in Place: No Catheter Insertion Date: 07/29/17 - Physician Discussed Patient with : Margaret Neurosurgery Physical Exam - Vitals, I&O, Labs I and O 07/30/17 07/31/17 08/01/17 05:59 05:59 05:59 Intake Total 2630 1500 Output Total 3565 3140 100 Balance -935 -1640 -100 Weight 65.771 kg Intake: Oral (ml) 30 1500 IV Intake (ml) 2600 Output: Urine (ml) 2875 2950 100 Catheter 2875 950 Urinal 2000 100 Estimated Blood Loss (ml) 350 TU Drain Output (ml) 340 190 Left Back Ck Lanza 340 190 Other: Intake Quantity Yes Sufficient Number of Voids Urinal 3 1 Bladder Scan Volume (ml) Urinal 999 Vital Signs Temp Pulse Resp BP Pulse Ox 37.2 C 66 15 104/73 93 07/31/17 08:00 07/30/17 23:21 07/31/17 08:00 07/31/17 08:00 07/31/17 08:00 Laboratory Results 07/30/17 04:38 07/30/17 04:38 ICD10 Worksheet Patient Problems: Problems Problem Status Onset Fusion of lumbar spine Acute
[2017-07-31] MEDS: ENOXAPARIN 40 MG/0.4 ML SYR SC SCH (10:01)
[2017-07-31] MEDS: PHENAZOPYRIDINE HCL 100 MG TAB PO SCH (10:01)
[2017-07-31] MEDS: FAMOTIDINE 20 MG TAB PO SCH (10:02)
[2017-07-31] MEDS: TAMSULOSIN HCL 0.4 MG CAP PO SCH (10:02)
[2017-07-31] MEDS: SENNOSIDES/DOCUSATE SODIUM TAB PO SCH (10:03)
[2017-07-31] MEDS: POLYETHYLENE GLYCOL 3350 17 GM PKT PO SCH (10:03)
[2017-07-31] MEDS: ATORVASTATIN CALCIUM 10 MG TAB PO SCH (10:03)
[2017-07-31] MEDS: morphINE SR 15 MG TAB PO SCH (10:09)
--- NOTE | 2017-08-04 10:50 | GDS ---
[f rep st] DISCHARGE SUMMARY ADMIT DIAGNOSIS: L5-S1 degenerative joint disease. DISCHARGE DIAGNOSIS: Status post L4-S1 instrumentation and fusion. HISTORY/PHYSICAL: Please see admission history and physical. HOSPITAL COURSE: Patient is a 67-year-old male who underwent a previous L2-L5 instrumentation and fu ira. He presented with low back pain and lower extremity radicular symptoms. He was found to have severe degenerative joint disease and collapse at L5-S1 level. He was taken to the operating room on 07/29/2017, where he underwent hardware removal from L2-L5, followed by an L4-S1 instrumentation wit h an L5-S1 transforaminal lumbar interbody fusion. There were no intraoperative complications. He w as admitted to the floor for observation. On the floor, he was tolerating a regular diet and his nasima n was controlled with p.o. pain medications. He was discharged home in stable condition on 8. He was discharged with lumbar fusion instructions and recommended he return for neurosurgical fol low appointment in 10-14 days. /[id number]/MODL
== END 2017-07-31 13:00 | disposition home or self-care (01) | DRG 460 ==
LOC: F3N 08:56
PROVIDERS: ADMIT Neurological Surgery; ATTEND Neurological Surgery
PROC: 01NB0ZZ Release Lumbar Nerve, Open Approach (ICD-10-PCS; principal; 2017-07-29 11:15)
PROC: 3E0U0GB Introduction of Recombinant Bone Morphogenetic Protein into Joints, Open Approach (ICD-10-PCS; principal; 2017-07-29 11:15)
PROC: 0SG30AJ Fusion of Lumbosacral Joint with Interbody Fusion Device, Posterior Approach, Anterior Column, Open Approach (ICD-10-PCS; principal; 2017-07-29 11:15)
PROC: 0QP004Z Removal of Internal Fixation Device from Lumbar Vertebra, Open Approach (ICD-10-PCS; principal; 2017-07-29 11:15)
DX: M51.17 Intervertebral disc disorders with radiculopathy, lumbosacral region (principal); M48.57XA Collapsed vertebra, not elsewhere classified, lumbosacral region, initial encounter for fracture; Z98.1 Arthrodesis status
CPT/HCPCS: 97116-GP; 97161-GP; 97165-GO; 97530-GP; C1713; C1762; J0171; J0690; J1100; J1170; J1650; J2274; J2370; J2405; J2704; J3010; J7060; P9041

== ENCOUNTER → 2018-06-22 | Outpatient (CLI) | payer OTHER | LOC: BMCIMAGING 11:28 | PROVIDERS: ATTEND Physician Assistant Medical | DX: J98.4 Other disorders of lung (principal); I70.0 Atherosclerosis of aorta ==